=== PATIENT | female | born 1965 ===

== ENCOUNTER 2020-03-08 15:14 | Outpatient (REF) | payer OTHER, SELFPAY ==
[2020-03-08 16:25] LABS: MANUAL DIFF FLAG NO
[2020-03-08 16:31] LABS: Basophils Percent Auto 0.4 % (0-2); Eosinophils Absolute Auto 0.1 X10*3/uL (0.0-0.4); Eosinophils Percent Auto 2.2 % (0-4); Hematocrit 38.1 % (37-47); Imm Gran Abs Auto 0.01 X10*3/uL (0.00-0.03); Imm Gran Pct Auto 0.2 % (0.0-0.4); Lymphocytes Absolute Auto 1.2 X10*3/uL (1.2-4.9); Lymphocytes Percent Auto 27.1 % (20-40); Mean Corpuscular HGB Conc 31.5 g/dl (31.0-35.0); Mean Corpuscular Hemoglobin 30.6 pg (27.0-33.0); Mean Corpuscular Volume 97.2 fL (80-98); Mean Platelet Volume 10.3 fL (9.4-12.3); Monocytes Absolute Auto 0.5 X10*3/uL (0.1-1.2); Neutrophils Absolute Auto 2.6 X10*3/uL (2.0-8.3); Neutrophils Percent Auto 59.1 % (45-73); Platelet Count 235 X10*3/uL (160-400); Red Blood Count 3.92 X10*6/uL (4.20-5.50); White Blood Count 4.5 X10*3/uL (4.8-10.8)
[2020-03-08 17:02] LABS: Alanine Aminotransferase 33 U/L (0-31); Albumin Level 4.1 g/dL (3.5-5.0); Alkaline Phosphatase 85 U/L (39-117); Anion Gap 11 (12-20); Aspartate Amino Transferase 28 U/L (5-31); Bilirubin Total 0.3 mg/dL (0.0-1.0); Blood Urea Nitrogen 14 mg/dL (9-16); C Reactive Protein 0.43 mg/dL (< or = 0.50); Calcium 8.5 mg/dL (8.4-10.2); Carbon Dioxide 27 mmol/L (22-29); Chloride 108 mmol/L (96-108); Estimated Glomerular Filt Rate > 60; Glucose Random 72 mg/dL (60-115); Potassium 4.4 mmol/l (3.3-5.1); Sodium 142 mmol/L (135-145); Total Protein 6.8 g/dL (6.5-8.0)
[2020-03-08 18:00] LABS: Erythrocyte Sedimentation Rate 16 MM/HR (0-20)
== END 2020-03-08 15:15 | disposition home or self-care (01) ==
LOC: HO.LAB 15:14
PROVIDERS: PCP Internal Medicine; Visit Provider Student in an Organized Health Care Education/Training Program
DX: M05.9 Rheumatoid arthritis with rheumatoid factor, unspecified (principal); Z79.899 Other long term (current) drug therapy
CPT/HCPCS: 36415; 80053; 85025; 85652; 86140

== ENCOUNTER → 2020-03-09 11:03 | Outpatient (BNVA) | payer OTHER, SELFPAY | PROVIDERS: PCP Internal Medicine; Visit Provider Student in an Organized Health Care Education/Training Program | DX: Z76.89 Persons encountering health services in other specified circumstances (principal) ==

== ENCOUNTER → 2020-06-08 10:09 | Outpatient (BNVA) | payer OTHER, SELFPAY | PROVIDERS: PCP Internal Medicine; Visit Provider Student in an Organized Health Care Education/Training Program | DX: Z76.89 Persons encountering health services in other specified circumstances (principal) ==

== ENCOUNTER → 2020-06-13 10:58 | Outpatient (BNVA) | payer OTHER, SELFPAY | PROVIDERS: PCP Internal Medicine; Visit Provider Student in an Organized Health Care Education/Training Program ==

== ENCOUNTER 2020-06-19 06:36 | Outpatient (REF) | payer OTHER, SELFPAY | END 2020-06-19 06:37 | disposition home or self-care (01) | LOC: HO.LAB 06:36 | PROVIDERS: PCP Internal Medicine; Visit Provider Internal Medicine | DX: Z20.822 Contact with and (suspected) exposure to COVID-19 (principal) | CPT/HCPCS: 36415; C9803; U0003 ==

== ENCOUNTER → 2020-06-22 09:36 | Outpatient (BNVA) | payer OTHER, SELFPAY | PROVIDERS: PCP Internal Medicine; Visit Provider Student in an Organized Health Care Education/Training Program | DX: Z13.89 Encounter for screening for other disorder (principal) | CPT/HCPCS: 20610 ==

== ENCOUNTER 2020-08-24 11:01 | Outpatient (REF) | payer OTHER, SELFPAY ==
[2020-08-24 12:04] LABS: MANUAL DIFF FLAG NO
[2020-08-24 12:25] LABS: Basophils Percent Auto 0.4 % (0-2); Eosinophils Absolute Auto 0.1 X10*3/uL (0.0-0.4); Eosinophils Percent Auto 1.3 % (0-4); Hematocrit 40.3 % (37-47); Hemoglobin 12.7 g/dl (12.0-16.0); Imm Gran Abs Auto 0.04 X10*3/uL (0.00-0.03); Imm Gran Pct Auto 0.6 % (0.0-0.4); Lymphocytes Percent Auto 43.7 % (20-40); Mean Corpuscular HGB Conc 31.5 g/dl (31.0-35.0); Mean Corpuscular Hemoglobin 29.3 pg (27.0-33.0); Mean Corpuscular Volume 93.1 fL (80-98); Mean Platelet Volume 10.1 fL (9.4-12.3); Monocytes Absolute Auto 0.6 X10*3/uL (0.1-1.2); Monocytes Percent Auto 8.2 % (2-11); Neutrophils Absolute Auto 3.2 X10*3/uL (2.0-8.3); Neutrophils Percent Auto 45.8 % (45-73); Platelet Count 297 X10*3/uL (160-400); Red Blood Count 4.33 X10*6/uL (4.20-5.50); Red Cell Distribution Width 13.8 % (11.0-16.0)
[2020-08-24 12:42] LABS: Alanine Aminotransferase 13 U/L (0-31); Albumin Level 4.1 g/dL (3.5-5.0); Alkaline Phosphatase 61 U/L (39-117); Anion Gap 12 (12-20); Aspartate Amino Transferase 14 U/L (5-31); Bilirubin Total 0.6 mg/dL (0.0-1.0); Blood Urea Nitrogen 18 mg/dL (9-16); C Reactive Protein 0.69 mg/dL (< or = 0.50); Calcium 8.8 mg/dL (8.4-10.2); Carbon Dioxide 28 mmol/L (22-29); Chloride 106 mmol/L (96-108); Estimated Glomerular Filt Rate > 60; Glucose Random 93 mg/dL (60-115); Potassium 4.1 mmol/L (3.3-5.1); Sodium 142 mmol/L (135-145)
[2020-08-24 13:55] LABS: Erythrocyte Sedimentation Rate 20 MM/HR (0-20)
== END 2020-08-24 11:02 | disposition home or self-care (01) ==
LOC: HO.LAB 11:01
PROVIDERS: PCP Internal Medicine; Visit Provider Student in an Organized Health Care Education/Training Program
DX: M05.9 Rheumatoid arthritis with rheumatoid factor, unspecified (principal); Z79.899 Other long term (current) drug therapy
CPT/HCPCS: 36415; 80053; 85025; 85652; 86140

== ENCOUNTER 2020-10-26 09:00 | Outpatient (REF) | payer OTHER, SELFPAY ==
[2020-10-26 10:12] LABS: MANUAL DIFF FLAG NO
[2020-10-26 10:21] LABS: Basophils Percent Auto 0.4 % (0-2); Eosinophils Absolute Auto 0.1 X10*3/uL (0.0-0.4); Hematocrit 40.3 % (37-47); Hemoglobin 13.2 g/dl (12.0-16.0); Imm Gran Abs Auto 0.01 X10*3/uL (0.00-0.03); Imm Gran Pct Auto 0.2 % (0.0-0.4); Lymphocytes Absolute Auto 1.8 X10*3/uL (1.2-4.9); Lymphocytes Percent Auto 39.8 % (20-40); Mean Corpuscular HGB Conc 32.8 g/dl (31.0-35.0); Mean Corpuscular Hemoglobin 29.3 pg (27.0-33.0); Mean Corpuscular Volume 89.4 fL (80-98); Mean Platelet Volume 10.6 fL (9.4-12.3); Monocytes Absolute Auto 0.4 X10*3/uL (0.1-1.2); Monocytes Percent Auto 9.9 % (2-11); Neutrophils Absolute Auto 2.1 X10*3/uL (2.0-8.3); Neutrophils Percent Auto 47.7 % (45-73); Platelet Count 231 X10*3/uL (160-400); Red Blood Count 4.51 X10*6/uL (4.20-5.50); Red Cell Distribution Width 13.6 % (11.0-16.0); White Blood Count 4.5 X10*3/uL (4.8-10.8)
[2020-10-26 10:48] LABS: Alanine Aminotransferase 19 U/L (0-31); Albumin Level 4.3 g/dL (3.5-5.0); Alkaline Phosphatase 77 U/L (39-117); Anion Gap 14 (12-20); Aspartate Amino Transferase 25 U/L (5-31); Bilirubin Total 0.6 mg/dL (0.0-1.0); Blood Urea Nitrogen 16 mg/dL (9-16); C Reactive Protein 0.04 mg/dL (< or = 0.50); Calcium 9.5 mg/dL (8.4-10.2); Carbon Dioxide 26 mmol/L (22-29); Chloride 107 mmol/L (96-108); Cholesterol 341 mg/dL; Estimated Glomerular Filt Rate > 60; Glucose Random 90 mg/dL (60-115); HDL Cholesterol 124 mg/dL; LDL Cholesterol Calculated 200 mg/dl; Potassium 4.8 mmol/L (3.3-5.1); Sodium 142 mmol/L (135-145); Total Protein 7.1 g/dL (6.5-8.0); Triglycerides 85 mg/dL
[2020-10-26 11:17] LABS: Erythrocyte Sedimentation Rate 14 MM/HR (0-20)
[2020-10-26 11:47] LABS: Reflex LDLD? No
== END 2020-10-26 09:01 | disposition home or self-care (01) ==
LOC: HO.LAB 09:00
PROVIDERS: PCP Internal Medicine; Visit Provider Student in an Organized Health Care Education/Training Program
DX: M05.9 Rheumatoid arthritis with rheumatoid factor, unspecified (principal); Z79.899 Other long term (current) drug therapy
CPT/HCPCS: 36415; 80053; 80061; 85025; 85652; 86140

== ENCOUNTER → 2021-02-07 13:37 | Outpatient (BNVA) | payer OTHER, SELFPAY | PROVIDERS: Visit Provider Nurse Practitioner Family ==

== ENCOUNTER 2021-04-18 08:40 | Outpatient (REF) | payer OTHER, SELFPAY ==
[2021-04-18 08:54] LABS: MANUAL DIFF FLAG NO
[2021-04-18 09:41] LABS: Basophils Percent Auto 0.3 % (0-2); Eosinophils Absolute Auto 0.1 X10*3/uL (0.0-0.4); Eosinophils Percent Auto 1.3 % (0-4); Hematocrit 36.6 % (37.0-47.0); Hemoglobin 12.2 g/dl (12.0-16.0); Imm Gran Abs Auto 0.01 X10*3/uL (0.00-0.03); Imm Gran Pct Auto 0.3 % (0.0-0.4); Lymphocytes Absolute Auto 1.2 X10*3/uL (1.2-4.9); Mean Corpuscular HGB Conc 33.3 g/dl (31.0-35.0); Mean Corpuscular Hemoglobin 30.7 pg (27.0-33.0); Mean Platelet Volume 10.5 fL (9.4-12.3); Monocytes Absolute Auto 0.3 X10*3/uL (0.1-1.2); Monocytes Percent Auto 7.5 % (2-11); Neutrophils Absolute Auto 2.2 x10*3/uL (2.0-8.3); Neutrophils Percent Auto 59.6 % (45-73); Platelet Count 199 X10*3/uL (160-400); Red Blood Count 3.98 X10*6/uL (4.20-5.50); Red Cell Distribution Width 13.1 % (11.0-16.0); White Blood Count 3.7 X10*3/uL (4.8-10.8)
[2021-04-18 10:09] LABS: Alanine Aminotransferase 20 U/L (0-31); Albumin Level 4.3 g/dL (3.5-5.0); Alkaline Phosphatase 79 U/L (39-117); Anion Gap 12 (12-20); Aspartate Amino Transferase 21 U/L (5-31); Bilirubin Total 0.5 mg/dL (0.0-1.0); Blood Urea Nitrogen 18 mg/dL (9-16); Calcium 9.3 mg/dL (8.4-10.2); Carbon Dioxide 26 mmol/L (22-29); Chloride 108 mmol/L (96-108); Cholesterol 315 mg/dL; Estimated Glomerular Filt Rate > 60; Glucose Fasting 89 mg/dL (60-99); HDL Cholesterol 91 mg/dL; LDL Cholesterol Calculated 209 mg/dl; Potassium 4.5 mmol/L (3.3-5.1); Sodium 141 mmol/L (135-145); Total Protein 7.1 g/dL (6.5-8.0); Triglycerides 76 mg/dL
[2021-04-18 11:06] LABS: Erythrocyte Sedimentation Rate 16 MM/HR (0-20)
[2021-04-18 15:05] LABS: C Reactive Protein 0.04 mg/dL (< or = 0.50)
[2021-04-22 12:11] LABS: Vitamin D 25-OH, D2 10 ng/mL; Vitamin D 25-OH, D3 14 ng/mL; Vitamin D 25-OH, Total 24 ng/mL (30-100)
== END 2021-04-18 08:41 | disposition home or self-care (01) ==
LOC: HO.LAB 08:40
PROVIDERS: PCP Internal Medicine; Referring Provider Nurse Practitioner Family; Visit Provider Internal Medicine
DX: E55.9 Vitamin D deficiency, unspecified (principal); E78.5 Hyperlipidemia, unspecified; M05.9 Rheumatoid arthritis with rheumatoid factor, unspecified; K21.9 Gastro-esophageal reflux disease without esophagitis
CPT/HCPCS: 36415; 80053; 80061; 82306; 85025; 85652; 86140

== ENCOUNTER 2021-04-27 14:19 | Outpatient (REF) | payer OTHER, SELFPAY ==
--- NOTE | ~2021-04-27 | MM_ITS ---
EXAMINATION: MM SCREENING DIGITAL BREAST TOMOSYNTHESIS, BILATERAL CLINICAL INFORMATION: Screening. Asymptomatic. The lifetime risk of breast cancer based on the Tyrer-Cuzick Model is 6%. COMPARISON: Mammography: 12/26/2017, 10/16/2015 TECHNIQUE: Digital breast tomosynthesis is performed in both the craniocaudal and mediolateral oblique views along with computer-aided detection (CAD). Synthesized 2D images are generated from the tomosynthesis. FINDINGS: There are scattered areas of fibroglandular density (ACR BI-RADS breast composition Category b). There are no significant masses, abnormal calcifications, or other abnormalities. Parenchymal pattern is similar to prior studies. Parenchymal asymmetry posterior upper outer right breast and intramammary node posterior 3:00 left breast are stable. MM/MM tomosynthesis screening BI IMPRESSION: No mammographic evidence of malignancy. ASSESSMENT: BI-RADS 2: Benign RECOMMENDATION: Routine annual mammography screening. This patient's information was entered into a reminder system with a target due date for their next mammogram.
== END 2021-04-27 14:20 | disposition home or self-care (01) ==
LOC: HO.MAMMO 14:19
PROVIDERS: Visit Provider Internal Medicine
DX: Z12.31 Encounter for screening mammogram for malignant neoplasm of breast (principal)
CPT/HCPCS: 77063; 77067

== ENCOUNTER 2021-05-03 13:03 | Outpatient (REF) | payer OTHER, SELFPAY ==
[2021-05-07 22:07] LABS: HPV mRNA E6/E7 rflx Not Detected (Not Detected)
== END 2021-05-03 13:04 | disposition home or self-care (01) ==
LOC: HO.LAB 13:03
PROVIDERS: PCP Internal Medicine; Visit Provider Obstetrics & Gynecology
DX: Z01.419 Encounter for gynecological examination (general) (routine) without abnormal findings (principal)
CPT/HCPCS: 87624; 88142

== ENCOUNTER → 2021-06-04 10:24 | Outpatient (BNVA) | payer OTHER, SELFPAY | PROVIDERS: PCP Internal Medicine; Visit Provider Nurse Practitioner Family ==

== ENCOUNTER 2021-08-31 07:46 | Outpatient (REF) | payer OTHER, SELFPAY ==
[2021-08-31 08:07] LABS: MANUAL DIFF FLAG NO
[2021-08-31 08:15] LABS: Basophils Percent Auto 0.6 % (0-2); Eosinophils Absolute Auto 0.1 X10*3/uL (0.0-0.4); Eosinophils Percent Auto 3.2 % (0-4); Hematocrit 34.2 % (37.0-47.0); Hemoglobin 11.1 g/dl (12.0-16.0); Lymphocytes Absolute Auto 1.2 X10*3/uL (1.2-4.9); Lymphocytes Percent Auto 39.9 % (20-40); Mean Corpuscular HGB Conc 32.5 g/dl (31.0-35.0); Mean Corpuscular Hemoglobin 30.1 pg (27.0-33.0); Mean Corpuscular Volume 92.7 fL (80.0-98.0); Mean Platelet Volume 9.6 fL (9.4-12.3); Monocytes Absolute Auto 0.2 X10*3/uL (0.1-1.2); Monocytes Percent Auto 7.7 % (2-11); Neutrophils Absolute Auto 1.5 x10*3/uL (2.0-8.3); Neutrophils Percent Auto 48.6 % (45-73); Platelet Count 227 X10*3/uL (160-400); Red Blood Count 3.69 X10*6/uL (4.20-5.50); Red Cell Distribution Width 13.3 % (11.0-16.0); White Blood Count 3.1 X10*3/uL (4.8-10.8)
[2021-08-31 08:40] LABS: Alanine Aminotransferase 15 U/L (0-31); Albumin Level 4.1 g/dL (3.5-5.0); Alkaline Phosphatase 78 U/L (39-117); Anion Gap 10 (12-20); Aspartate Amino Transferase 19 U/L (5-31); Bilirubin Total 0.6 mg/dL (0.0-1.0); Blood Urea Nitrogen 12 mg/dL (9-16); C Reactive Protein 0.06 mg/dL (< or = 0.50); Calcium 9.2 mg/dL (8.4-10.2); Carbon Dioxide 28 mmol/L (22-29); Chloride 108 mmol/L (96-108); Cholesterol 286 mg/dL; Estimated Glomerular Filt Rate > 60; Glucose Random 93 mg/dL (60-115); HDL Cholesterol 92 mg/dL; LDL Cholesterol Calculated 179 mg/dl; Potassium 3.9 mmol/L (3.3-5.1); Sodium 142 mmol/L (135-145); Total Protein 6.8 g/dL (6.5-8.0); Triglycerides 76 mg/dL
[2021-08-31 08:54] LABS: Erythrocyte Sedimentation Rate 23 MM/HR (0-20)
[2021-08-31 09:12] LABS: Reflex LDLD? No
== END 2021-08-31 07:47 | disposition home or self-care (01) ==
LOC: HO.LAB 07:46
PROVIDERS: Absent Provider Internal Medicine; PCP Internal Medicine; Visit Provider Nurse Practitioner Family
DX: M05.9 Rheumatoid arthritis with rheumatoid factor, unspecified (principal)
CPT/HCPCS: 36415; 80053; 80061; 85025; 85652; 86140

== ENCOUNTER → 2021-09-03 11:31 | Outpatient (BNVA) | payer OTHER, SELFPAY | PROVIDERS: PCP Internal Medicine; Visit Provider Nurse Practitioner Family | DX: Z13.89 Encounter for screening for other disorder (principal) ==

== ENCOUNTER 2021-11-28 10:25 | Outpatient (REF) | payer OTHER, SELFPAY ==
[2021-11-28 10:40] LABS: MANUAL DIFF FLAG NO
[2021-11-28 11:57] LABS: Basophils Percent Auto 0.4 % (0-2); Eosinophils Absolute Auto 0.1 X10*3/uL (0.0-0.4); Hematocrit 34.1 % (37.0-47.0); Hemoglobin 10.9 g/dl (12.0-16.0); Imm Gran Abs Auto 0.01 X10*3/uL (0.00-0.03); Imm Gran Pct Auto 0.2 % (0.0-0.4); Lymphocytes Percent Auto 22.2 % (20-40); Mean Corpuscular Hemoglobin 29.9 pg (27.0-33.0); Mean Corpuscular Volume 93.4 fL (80.0-98.0); Mean Platelet Volume 10.4 fL (9.4-12.3); Monocytes Absolute Auto 0.4 X10*3/uL (0.1-1.2); Monocytes Percent Auto 9.7 % (2-11); Neutrophils Percent Auto 65.5 % (45-73); Platelet Count 221 X10*3/uL (160-400); Red Blood Count 3.65 X10*6/uL (4.20-5.50); Red Cell Distribution Width 14.1 % (11.0-16.0); White Blood Count 4.5 X10*3/uL (4.8-10.8)
[2021-11-28 12:38] LABS: Vitamin D 25-OH Total 10.7 ng/mL (>30)
[2021-11-28 12:55] LABS: Cholesterol 293 mg/dL; HDL Cholesterol 108 mg/dL; LDL Cholesterol Calculated 170 mg/dl; Triglycerides 76 mg/dL
[2021-11-28 13:48] LABS: Reflex LDLD? No
== END 2021-11-28 10:26 | disposition home or self-care (01) ==
LOC: HO.LAB 10:25
PROVIDERS: PCP Internal Medicine; Visit Provider Nurse Practitioner Family
DX: M05.9 Rheumatoid arthritis with rheumatoid factor, unspecified (principal)
CPT/HCPCS: 36415; 80061; 82306; 85025

== ENCOUNTER 2021-12-10 16:42 | Outpatient (REF) | payer OTHER, SELFPAY ==
--- NOTE | ~2021-12-10 | XR_ITS ---
Examination: XR foot LT min 3V, XR wrist LT min 3V Indication: Rheumatoid arthritis. Contusion of left hand, initial encounter Comparison: No pertinent prior studies are currently available for comparison. Technique: 4 views of the left wrist and 3 views of the left foot obtained Findings: Left wrist: Bones are normal anatomic alignment. No acute fracture or dislocation. No bony destructive lesions or periosteal reaction. Surrounding soft tissues unremarkable. Mild degenerative changes at the first carpal metacarpal joint. Left foot: Bones are normal anatomic alignment with no acute bony destructive lesions or erosions. No periosteal reaction. No acute fracture or dislocation. Surrounding soft tissues unremarkable. Small calcaneal heel spur at the attachment point of the plantar aponeurosis. XR/XR wrist LT min 3V Impression: No acute bony abnormality. Mild degenerative changes
--- NOTE | ~2021-12-10 | XR_ITS ---
Examination: XR foot LT min 3V, XR wrist LT min 3V Indication: Rheumatoid arthritis. Contusion of left hand, initial encounter Comparison: No pertinent prior studies are currently available for comparison. Technique: 4 views of the left wrist and 3 views of the left foot obtained Findings: Left wrist: Bones are normal anatomic alignment. No acute fracture or dislocation. No bony destructive lesions or periosteal reaction. Surrounding soft tissues unremarkable. Mild degenerative changes at the first carpal metacarpal joint. Left foot: Bones are normal anatomic alignment with no acute bony destructive lesions or erosions. No periosteal reaction. No acute fracture or dislocation. Surrounding soft tissues unremarkable. Small calcaneal heel spur at the attachment point of the plantar aponeurosis. XR/XR foot LT min 3V Impression: No acute bony abnormality. Mild degenerative changes
== END 2021-12-10 16:43 | disposition home or self-care (01) ==
LOC: HO.HMGCX 16:42
PROVIDERS: Visit Provider Internal Medicine
DX: S90.32XA Contusion of left foot, initial encounter (principal); S60.222A Contusion of left hand, initial encounter
CPT/HCPCS: 73110; 73630

== ENCOUNTER 2022-02-07 09:44 | Outpatient (REF) | payer OTHER, SELFPAY ==
[2022-02-07 10:01] LABS: MANUAL DIFF FLAG NO
[2022-02-07 10:21] LABS: Basophils Percent Auto 0.3 % (0-2); Eosinophils Absolute Auto 0.1 X10*3/uL (0.0-0.4); Eosinophils Percent Auto 2.3 % (0-4); Hematocrit 36.4 % (37.0-47.0); Hemoglobin 11.9 g/dl (12.0-16.0); Imm Gran Abs Auto 0.01 X10*3/uL (0.00-0.03); Imm Gran Pct Auto 0.3 % (0.0-0.4); Lymphocytes Absolute Auto 1.3 X10*3/uL (1.2-4.9); Lymphocytes Percent Auto 38.4 % (20-40); Mean Corpuscular HGB Conc 32.7 g/dl (31.0-35.0); Mean Corpuscular Hemoglobin 29.8 pg (27.0-33.0); Mean Platelet Volume 10.1 fL (9.4-12.3); Monocytes Absolute Auto 0.3 X10*3/uL (0.1-1.2); Monocytes Percent Auto 9.8 % (2-11); Neutrophils Absolute Auto 1.7 x10*3/uL (2.0-8.3); Neutrophils Percent Auto 48.9 % (45-73); Platelet Count 222 X10*3/uL (160-400); Red Cell Distribution Width 13.3 % (11.0-16.0); White Blood Count 3.5 X10*3/uL (4.8-10.8)
[2022-02-07 10:50] LABS: Alanine Aminotransferase 15 U/L (0-31); Albumin Level 4.3 g/dL (3.5-5.0); Alkaline Phosphatase 88 U/L (39-117); Anion Gap 15 (12-20); Aspartate Amino Transferase 21 U/L (5-31); Bilirubin Total 0.5 mg/dL (0.0-1.0); Blood Urea Nitrogen 21 mg/dL (9-16); C Reactive Protein 0.18 mg/dL (< or = 0.50); Calcium 9.2 mg/dL (8.4-10.2); Carbon Dioxide 23 mmol/L (22-29); Chloride 107 mmol/L (96-108); Estimated Glomerular Filt Rate > 60; Glucose Random 92 mg/dL (60-115); Iron 85 mcg/dL (30-160); Percent Iron Saturation 24 % (15-50); Potassium 4.5 mmol/L (3.3-5.1); Sodium 140 mmol/L (135-145); Total Iron Binding Capacity 355 mcg/dL (228-428); Total Protein 7.4 g/dL (6.5-8.0); Unsaturated Iron Binding 270 ug/dL
[2022-02-07 11:19] LABS: Ferritin 74 ng/mL (10-250)
[2022-02-07 11:29] LABS: Erythrocyte Sedimentation Rate 25 MM/HR (0-20)
== END 2022-02-07 09:45 | disposition home or self-care (01) ==
LOC: HO.LAB 09:44
PROVIDERS: PCP Internal Medicine; Visit Provider Nurse Practitioner Family
DX: M05.9 Rheumatoid arthritis with rheumatoid factor, unspecified (principal); E55.9 Vitamin D deficiency, unspecified
CPT/HCPCS: 36415; 80053; 82306; 82728; 83540; 85025; 85652; 86140

== ENCOUNTER 2022-02-27 11:19 | Outpatient (REF) | payer OTHER, SELFPAY ==
[2022-02-27 11:32] LABS: MANUAL DIFF FLAG NO
[2022-02-27 12:08] LABS: Basophils Percent Auto 0.6 % (0-2); Eosinophils Absolute Auto 0.1 X10*3/uL (0.0-0.4); Eosinophils Percent Auto 2.4 % (0-4); Hemoglobin 11.7 g/dl (12.0-16.0); Lymphocytes Absolute Auto 0.8 X10*3/uL (1.2-4.9); Lymphocytes Percent Auto 24.7 % (20-40); Mean Corpuscular HGB Conc 32.5 g/dl (31.0-35.0); Mean Corpuscular Hemoglobin 29.4 pg (27.0-33.0); Mean Corpuscular Volume 90.5 fL (80.0-98.0); Mean Platelet Volume 9.7 fL (9.4-12.3); Monocytes Absolute Auto 0.4 X10*3/uL (0.1-1.2); Monocytes Percent Auto 12.5 % (2-11); Neutrophils Percent Auto 59.8 % (45-73); Platelet Count 203 X10*3/uL (160-400); Red Blood Count 3.98 X10*6/uL (4.20-5.50); Red Cell Distribution Width 13.4 % (11.0-16.0); White Blood Count 3.4 X10*3/uL (4.8-10.8)
[2022-02-27 12:34] LABS: Alanine Aminotransferase 11 U/L (0-31); Albumin Level 4.3 g/dL (3.5-5.0); Alkaline Phosphatase 74 U/L (39-117); Anion Gap 13 (12-20); Aspartate Amino Transferase 18 U/L (5-31); Bilirubin Total 0.6 mg/dL (0.0-1.0); Blood Urea Nitrogen 15 mg/dL (9-16); C Reactive Protein 0.49 mg/dL (< or = 0.50); Calcium 9.4 mg/dL (8.4-10.2); Carbon Dioxide 25 mmol/L (22-29); Chloride 109 mmol/L (96-108); Estimated Glomerular Filt Rate > 60; Glucose Random 96 mg/dL (60-115); Potassium 4.4 mmol/L (3.3-5.1); Sodium 143 mmol/L (135-145); Total Protein 7.1 g/dL (6.5-8.0)
[2022-02-27 12:53] LABS: Erythrocyte Sedimentation Rate 34 MM/HR (0-20)
== END 2022-02-27 11:20 | disposition home or self-care (01) ==
LOC: HO.LAB 11:19
PROVIDERS: PCP Internal Medicine; Visit Provider Nurse Practitioner Family
DX: M05.9 Rheumatoid arthritis with rheumatoid factor, unspecified (principal); Z79.899 Other long term (current) drug therapy
CPT/HCPCS: 36415; 80053; 85025; 85652; 86140

== ENCOUNTER 2022-04-01 11:05 | Outpatient (REF) | payer OTHER, SELFPAY ==
[2022-04-01 11:17] LABS: MANUAL DIFF FLAG NO
[2022-04-01 11:35] LABS: Basophils Percent Auto 0.5 % (0-2); Eosinophils Absolute Auto 0.1 X10*3/uL (0.0-0.4); Eosinophils Percent Auto 1.8 % (0-4); Hematocrit 38.9 % (37.0-47.0); Hemoglobin 12.6 g/dl (12.0-16.0); Imm Gran Abs Auto 0.01 X10*3/uL (0.00-0.03); Imm Gran Pct Auto 0.2 % (0.0-0.4); Lymphocytes Absolute Auto 1.7 X10*3/uL (1.2-4.9); Lymphocytes Percent Auto 39.2 % (20-40); Mean Corpuscular HGB Conc 32.4 g/dl (31.0-35.0); Mean Corpuscular Hemoglobin 30.1 pg (27.0-33.0); Mean Corpuscular Volume 92.8 fL (80.0-98.0); Mean Platelet Volume 10.4 fL (9.4-12.3); Monocytes Absolute Auto 0.3 X10*3/uL (0.1-1.2); Monocytes Percent Auto 6.9 % (2-11); Neutrophils Absolute Auto 2.2 x10*3/uL (2.0-8.3); Neutrophils Percent Auto 51.4 % (45-73); Platelet Count 186 X10*3/uL (160-400); Red Blood Count 4.19 X10*6/uL (4.20-5.50); Red Cell Distribution Width 13.7 % (11.0-16.0); White Blood Count 4.4 X10*3/uL (4.8-10.8)
[2022-04-01 12:11] LABS: Alanine Aminotransferase 16 U/L (0-31); Albumin Level 4.3 g/dL (3.5-5.0); Alkaline Phosphatase 79 U/L (39-117); Anion Gap 14 (12-20); Aspartate Amino Transferase 21 U/L (5-31); Bilirubin Total 0.6 mg/dL (0.0-1.0); Blood Urea Nitrogen 15 mg/dL (9-16); C Reactive Protein 0.05 mg/dL (< or = 0.50); Calcium 9.3 mg/dL (8.4-10.2); Carbon Dioxide 25 mmol/L (22-29); Chloride 108 mmol/L (96-108); Estimated Glomerular Filt Rate > 60; Glucose Random 71 mg/dL (60-115); Iron 86 mcg/dL (30-160); Percent Iron Saturation 25 % (15-50); Potassium 4.5 mmol/L (3.3-5.1); Sodium 142 mmol/L (135-145); Total Iron Binding Capacity 340 mcg/dL (228-428); Total Protein 7.4 g/dL (6.5-8.0); Unsaturated Iron Binding 254 ug/dL
[2022-04-01 12:17] LABS: Erythrocyte Sedimentation Rate 21 MM/HR (0-20)
[2022-04-01 12:34] LABS: Ferritin 67 ng/mL (10-250); Vitamin D 25-OH Total 14.2 ng/mL (>30)
[2022-04-01 12:57] LABS: Folate 11.3 ng/mL (> or = 4.0)
== END 2022-04-01 11:06 | disposition home or self-care (01) ==
LOC: HO.LAB 11:05
PROVIDERS: PCP Internal Medicine; Visit Provider Nurse Practitioner Family
DX: M05.9 Rheumatoid arthritis with rheumatoid factor, unspecified (principal); D64.9 Anemia, unspecified; E55.9 Vitamin D deficiency, unspecified
CPT/HCPCS: 36415; 80053; 82306; 82728; 82746; 83540; 85025; 85652; 86140

== ENCOUNTER 2022-05-14 09:56 | Outpatient (REF) | payer OTHER, SELFPAY | END 2022-05-14 09:57 | disposition home or self-care (01) | LOC: HO.HMGCX 09:56 | PROVIDERS: PCP Internal Medicine; Visit Provider Nurse Practitioner Family | DX: R10.9 Unspecified abdominal pain (principal) | CPT/HCPCS: 76700 ==

== ENCOUNTER 2022-07-01 15:57 | Outpatient (REF) | payer OTHER, SELFPAY ==
[2022-07-01 16:09] LABS: MANUAL DIFF FLAG NO
[2022-07-01 16:25] LABS: Basophils Percent Auto 0.5 % (0-2); Eosinophils Absolute Auto 0.1 X10*3/uL (0.0-0.4); Eosinophils Percent Auto 1.4 % (0-4); Hematocrit 35.9 % (37.0-47.0); Hemoglobin 11.6 g/dl (12.0-16.0); Imm Gran Abs Auto 0.01 X10*3/uL (0.00-0.03); Imm Gran Pct Auto 0.2 % (0.0-0.4); Lymphocytes Absolute Auto 1.5 X10*3/uL (1.2-4.9); Lymphocytes Percent Auto 35.1 % (20-40); Mean Corpuscular HGB Conc 32.3 g/dl (31.0-35.0); Mean Corpuscular Hemoglobin 29.7 pg (27.0-33.0); Mean Corpuscular Volume 92.1 fL (80.0-98.0); Monocytes Absolute Auto 0.5 X10*3/uL (0.1-1.2); Monocytes Percent Auto 11.6 % (2-11); Neutrophils Absolute Auto 2.2 x10*3/uL (2.0-8.3); Neutrophils Percent Auto 51.2 % (45-73); Platelet Count 205 X10*3/uL (160-400); Red Cell Distribution Width 14.4 % (11.0-16.0); White Blood Count 4.2 X10*3/uL (4.8-10.8)
[2022-07-01 16:48] LABS: Alanine Aminotransferase 15 U/L (0-31); Aspartate Amino Transferase 19 U/L (5-31); C Reactive Protein 0.12 mg/dL (< or = 0.50); Estimated Glomerular Filt Rate > 60
[2022-07-01 17:07] LABS: Erythrocyte Sedimentation Rate 19 MM/HR (0-20)
== END 2022-07-01 15:58 | disposition home or self-care (01) ==
LOC: HO.LAB 15:57
PROVIDERS: PCP Internal Medicine; Visit Provider Nurse Practitioner Family
DX: M05.9 Rheumatoid arthritis with rheumatoid factor, unspecified (principal); Z79.899 Other long term (current) drug therapy
CPT/HCPCS: 36415; 82565; 84450; 84460; 85025; 85652; 86140

== ENCOUNTER → 2022-07-02 11:25 | Outpatient (BNVA) | payer OTHER, SELFPAY | PROVIDERS: PCP Internal Medicine; Visit Provider Nurse Practitioner Family | DX: Z13.89 Encounter for screening for other disorder (principal) ==

== ENCOUNTER → 2022-10-31 11:23 | Outpatient (BNVA) | payer OTHER, SELFPAY | PROVIDERS: PCP Internal Medicine; Visit Provider Internal Medicine Rheumatology ==

== ENCOUNTER 2022-12-25 11:42 | Outpatient (REF) | payer OTHER, SELFPAY ==
[2022-12-25 11:53] LABS: MANUAL DIFF FLAG NO
[2022-12-25 13:09] LABS: Basophils Percent Auto 0.4 % (0-2); Eosinophils Percent Auto 0.9 % (0-4); Hematocrit 36.5 % (37.0-47.0); Hemoglobin 11.6 g/dl (12.0-16.0); Imm Gran Abs Auto 0.01 X10*3/uL (0.00-0.03); Imm Gran Pct Auto 0.2 % (0.0-0.4); Lymphocytes Absolute Auto 1.6 X10*3/uL (1.2-4.9); Mean Corpuscular HGB Conc 31.8 g/dl (31.0-35.0); Mean Corpuscular Hemoglobin 29.7 pg (27.0-33.0); Mean Corpuscular Volume 93.6 fL (80.0-98.0); Mean Platelet Volume 10.3 fL (9.4-12.3); Monocytes Absolute Auto 0.4 X10*3/uL (0.1-1.2); Monocytes Percent Auto 8.1 % (2-11); Neutrophils Absolute Auto 2.6 x10*3/uL (2.0-8.3); Neutrophils Percent Auto 56.4 % (45-73); Platelet Count 267 X10*3/uL (160-400); White Blood Count 4.7 X10*3/uL (4.8-10.8)
[2022-12-25 13:53] LABS: Erythrocyte Sedimentation Rate 23 MM/HR (0-20)
[2022-12-25 14:28] LABS: Alanine Aminotransferase 13 U/L (0-31); Aspartate Amino Transferase 18 U/L (5-31); C Reactive Protein 0.14 mg/dL (< or = 0.50); Estimated Glomerular Filt Rate > 60
== END 2022-12-25 11:43 | disposition home or self-care (01) ==
LOC: HO.LAB 11:42
PROVIDERS: PCP Internal Medicine; Visit Provider Internal Medicine Rheumatology
DX: M05.9 Rheumatoid arthritis with rheumatoid factor, unspecified (principal); Z79.899 Other long term (current) drug therapy
CPT/HCPCS: 36415; 82565; 84450; 84460; 85025; 85652; 86140

== ENCOUNTER → 2023-02-27 10:59 | Outpatient (BNVA) | payer OTHER, SELFPAY | PROVIDERS: PCP Internal Medicine; Visit Provider Internal Medicine Rheumatology ==

== ENCOUNTER 2023-03-04 08:40 | Outpatient (AMB) | payer OTHER, SELFPAY ==
--- NOTE | 2023-03-04 08:43 | MHC.OFFVIS ---
Intake Vital Signs 03/04/23 08:49 Height 5 ft 1 in Weight 185 lb 3.013 oz BMI 35.0 BP 120/90 H Blood Pressure Location Lt brachial Position Sitting Pulse 92 Pulse Source Pulse Oximeter Temp 97.4 F Temp Source Skin Pulse Oximetry (%) 95 Oxygen Delivery Method Room Air Intake Visit Reasons: RA Intake Note: Patient presents today to follow up on RA. c/o [place] hand finger swelling, left elbow pain, right knee pain, right achilles tendon pain. 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 She remains on Rinvoq 15 mg daily with occasional 600 mg ibuprofen. She probably takes the ibuprofen once or twice a week she says. 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 Areas of pain include the wrists, right PIP and left MCPs. She does not see him to have any knee pain. She does have some pain in the left Achilles. [facility] Medical History Class 1 obesity with body mass index (BMI) of 34.0 to 34.9 in adult GERD (gastroesophageal reflux disease) Hypercholesterolemia Mixed hyperlipidemia Peptic ulcer disease Vitamin D deficiency Surgical History History of gastric surgery History of tubal ligation Family History Mother Diabetes HTN (hypertension) CVD (cardiovascular disease) Father High cholesterol Stroke Social History Household Members: Spouse Housing: House Alcohol intake: never Patient Tobacco Use Status: Never used Tobacco e-Cigarette/Vaping Use: Never Used Second Hand Smoke Exposure: No service: No Current occupational status: employed Current occupational exposures/hazards: No Cognitive needs: No Hearing needs: No Vision needs: Yes Female Reproductive History Menstrual Age of Menarche: 9 Review of Systems Const Details: Negative for appetite change, weight change, fever, chills, malaise and fatigue Eyes Details: Negative for vision change, dry eyes,headaches and dizziness Card Details: Negative chest pain, edema and syncope Resp Details: Negative for SOB, cough and wheezing GI Details: Negative indigestion/heartburn, nausea, abdominal pain, bowel changes, diarrhea, constipation and bloody stool. [place]/Lymph Details: Negative for excessive bruising or bleeding. Physical Exam Vital Signs: Last Vital Signs Temp 97.4 F 03/04/23 08:49 Pulse 92 03/04/23 08:49 BP 120/90 H 03/04/23 08:49 Pulse Ox 95 03/04/23 08:49 Oxygen Delivery Method Room Air 03/04/23 08:49 BMI result Body Mass Index 35.0 APPEARANCE: Patient in no acute distress EYES no redness, pupils equal and reactive to light, eyelids normal JOINT EXAM:?? Cervical Spine:? Full range of motion without pain; no tenderness. Thoracic Spine: No scoliosis.? No tenderness on palpation. Lumbar Spine:? Alignment normal.? Full range of motion without pain, no tenderness. Hands: LEFT:? Normal pain-free range of motion with slight tenderness at the 2nd through 4th MCP with minimal swelling.. There is some mild bony enlargement at the 2nd through 4th PIP joints. She has some slightly tender bony enlargement at the 2nd PIP. She has otherwise no other soft tissue swelling no tenderness. No thenar atrophy, flexor tendon triggering or sensory loss.. ? RIGHT: Mild pain with range of motion at the 5th finger. There is some slight swelling and tenderness at the 3rd MCP and there is [id number] tenderness along the 5th flexor tendon. There is slight tenderness of the 2nd through 4th flexor tendons. She has some nontender bony enlargement at the thumb IP and the 2nd 3rd PIP joints. No sensory loss or thenar atrophy. Wrists:? LEFT:? Mild pain with flexion and extension at 60 degrees with some ulnar aspect tenderness with questionable swelling. No increased warmth erythema. ? RIGHT: Mild pain with flexion extension at 60 degrees. There is some mild ulnar tenderness with no swelling. No redness or warmth. Elbows: Normal pain-free range of motion without tenderness, swelling, increased warmth or erythema. Shoulders: Normal pain-free range of motion without tenderness, swelling, increased warmth or erythema. Hips:? Full range of motion without pain. Hip bursa:? No tenderness. Knees:?? Normal pain-free range of motion with slight patellofemoral crepitus but no effusion, tenderness, swelling, increased warmth or erythema.? Ankles: Left: There is mild with AP motion at the ankle. There is some mild tenderness along the Achilles tendon without redness, bruising or swelling. Right: Normal pain-free range of motion without tenderness, swelling, increased warmth or erythema. Feet: Left: Pain-free range of motion with some slight tenderness at the 3rd and 4th MTP joints without swelling. Right: Normal pain-free range of motion without tenderness, swelling, increased warmth or erythema. ? Office Procedures Joint Injection/Drain Joint Injection/Drain Primary Site: right trigger finger Injected: 20 mg of, Kenalog, with 0.5 mL of and 1% plain lidocaine Coding Details: The palm of the right hand was prepped with ChloraPrep and alcohol. Under topical ethyl chloride spray the right 5th flexor tendon sheath was injected with 20 mg of triamcinolone and 0.2 cc of 1% lidocaine. The patient tolerated the procedure without any acute complications. 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 Most problematic currently seems to be the right 5th finger where she has some tenderness along the flexor tendon. Local corticosteroid injection for that is recommended. We reviewed potential side effects of corticosteroid injections. She has had them before. The palm of the right hand was prepped with ChloraPrep and alcohol. Under topical ethyl chloride spray the right 5th flexor tendon sheath was injected with 20 mg of triamcinolone and 0.2 cc of 1% lidocaine. The patient tolerated the procedure without any acute complications. The lab work looked good with normal CRP and minimally elevated sed rate. We will continue with the Rinvoq as above. The patient is scheduled to return in 3 months with lab work before that procedure. She was given a note to be out of work today and tomorrow because of the injection. 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 Erythrocyte Sedimentation Rate Today M05.9 - Rheumatoid arthritis with rheumatoid factor, unspecified C Reactive Protein Today M05.9 - Rheumatoid arthritis with rheumatoid factor, unspecified Aspartate Amino Transferase Today M05.9 - Rheumatoid arthritis with rheumatoid factor, unspecified, Z79.899 - Other shelter (current) drug therapy Creatinine Today M05.9 - Rheumatoid arthritis with rheumatoid factor, unspecified, Z79.899 - Other shelter (current) drug therapy AMB Joint Injection/Aspiration Today M65.9 - Synovitis and tenosynovitis, unspecified Coding Level of Care Code Est Pt Level 3 (10200) Diagnoses Long-term use of immunosuppressant medication Z79.60 Flexor tenosynovitis of finger M65.9 Seropositive rheumatoid arthritis M05.9
[2023-03-04 08:49] VITALS: BP 120/90; PULSE 92; TEMP 36.3; O2SAT 95; BMI 35.0
== END 2023-03-04 09:24 | disposition home or self-care (01) ==
PROVIDERS: PCP Internal Medicine; Visit Provider Internal Medicine Rheumatology
DX: M05.79 Rheumatoid arthritis with rheumatoid factor of multiple sites without organ or systems involvement (principal); Z79.60 Long term (current) use of unspecified immunomodulators and immunosuppressants; M65.841 Other synovitis and tenosynovitis, right hand
CPT/HCPCS: 20550; 99213

== ENCOUNTER → 2023-03-04 08:40 | Outpatient (BNVA) | payer OTHER, SELFPAY | PROVIDERS: PCP Internal Medicine; Visit Provider Internal Medicine Rheumatology | DX: M65.9 Synovitis and tenosynovitis, unspecified (principal); M05.9 Rheumatoid arthritis with rheumatoid factor, unspecified; Z79.60 Long term (current) use of unspecified immunomodulators and immunosuppressants | CPT/HCPCS: 20550; J3301 ==

== ENCOUNTER 2023-03-10 07:24 | Outpatient (AMB) | payer OTHER, SELFPAY ==
--- NOTE | 2023-03-10 07:34 | A.OFFPC_ITS ---
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 Accompanied by: Self / Same As Patient Allergies No Known Allergies Allergy (Verified 03/10/23 07:54) Medication List - Last Reconciled 03/10/23 by PUSHPA Mendez ibuprofen 600 mg PO Q8H PRN 90 days omeprazole 20 mg PO DAILY 90 days upadacitinib ER (Rinvoq) 15 mg PO DAILY Tobacco use date assessed: 03/10/23 Dental Screening Dental Screen Date: 03/10/23 Did you have a dental visit in the last 12 months?: No Did you have a dental problem in the last 6 months where you did not have access to dental care?: No Was dental information given to patient?: Patient has dentist HPI HPI Comments History of Present Illness Details 57-year-old female past medical history significant for rheumatoid arthritis, GERD, hypercholesteremia and vitamin-D deficiency. Patient of that is today for physical exam. Review of the notes patient continues to follow with rheumatology for rheumatoid arthritis continues on Rinvoq 15mg daily for this. Patient denies any chest pain palpitations shortness of and syncope. Patient work physical form completed,in office eye exam. Physical form was baseline only by patients MD, Requested patients Pcp Dr. Cardenas to sign off on physical form. Eye Exam:Recommended Pap Smear: Patient recommended to call OBGYN to schedule pap smear as she is over due. Mammogram: April 2021, order entered Refused flu shot. [facility] Medical History Vitamin D deficiency Class 1 obesity with body mass index (BMI) of 34.0 to 34.9 in adult GERD (gastroesophageal reflux disease) Mixed hyperlipidemia Hypercholesterolemia Peptic ulcer disease Surgical History History of gastric surgery History of tubal ligation Family History Mother Diabetes HTN (hypertension) CVD (cardiovascular disease) Father High cholesterol Stroke Social History Household Members: Spouse Housing: House Alcohol intake: never Patient Tobacco Use Status: Never used Tobacco e-Cigarette/Vaping Use: Never Used Second Hand Smoke Exposure: No service: No Current occupational status: employed Current occupational exposures/hazards: No Cognitive needs: No Hearing needs: No Vision needs: Yes Female Reproductive History Menstrual Age of Menarche: 9 Questionnaire PHQ-9 Over the last 2 weeks, how often have you been bothered by any of the following problems? 1. Little interest or pleasure in doing things: not at all 2. Feeling down, depressed, or hopeless: not at all 3. Trouble falling or staying asleep, or sleeping too much: not at all 4. Feeling tired or having little energy: not at all 5. Poor appetite or overeating: not at all 6. Feeling bad about yourself - or that you are a failure or have let yourself or your family down: not at all 7. Trouble concentrating on things, such as reading the newspaper or watching television: not at all 8. Moving or speaking so slowly that other people could have noticed. Or the opposite - being so fidgety or restless that you have been moving around a lot more than usual: not at all 9. Thoughts that you would be better off or of hurting yourself in some way: not at all Total score: 0 Depression Screening Interpretation: Negative Depression Screening Done: Yes Source: Developed by Drs. Diego Shea, Celeste Avendano, You Austin and colleagues, with an educational hilda from [employer] Thrive Questionnaire Date Thrive assessed: 03/10/23 I am a: Patient What is your living situation today?: I have a steady place to live Within the past 12 months, did the food you bought not last and you didn't have the money to get more?: Never true Within the past 12 months, did you worry whether your food would run out before you got money to buy more?: Never true Do you have trouble paying for medicines?: No Do you have trouble getting transportation to medical appointments?: No Do you have trouble paying your heating and electricity bill?: No Do you have trouble taking care of your child, family member or friend?: No Do you have trouble with day-to-day activities such as bathing, preparing meals, shopping, managing finances, etc.?: No Are you currently unemployed and looking for a job?: No Are you interested in more education?: No Please select the resources that you would like help with: None Currently or been in a relationship where the following occur: no concerns reported AUDIT C Alcohol Use Questionnaire (AUDIT-C) 1. How often do you have a drink containing alcohol?: Never Total Score: 0 ARJUN-7 AMB Questionnaire ARJUN-7 Date ARJUN - 7 assessed: 03/10/23 Feeling nervous, anxious, or on edge: 0 = Not at all Not being able to stop or control worryin = Not at all Worrying too much about different things: 0 = Not at all Trouble relaxin = Not at all Being so restless that it is hard to sit still: 0 = Not at all Becoming easily annoyed or irritable: 0 = Not at all Feeling afraid as if something awful might happen: 0 = Not at all Total ARJUN-7 score (0-4 normal; 5-9 mild; 10-14 moderate; 15-21 severe): 0 Source: Developed by Drs. Diego Shea, Celeste Avendano, You Austin and colleagues, with an educational hilda from [employer] ARJUN-7 Assessment Billing ARJUN-7 Assessment Tool: ARJUN-7 Assessment 67609 Review of Systems Const Denies chills, Denies fatigue, Denies fever(s) and Denies poor appetite Eyes Denies no additional complaints ENT Reports Normal hearing present Card Denies chest pain, Denies syncope, Denies rapid heart rate and Denies dyspnea Resp Denies cough and Denies dyspnea GI Denies change in stool character, Denies constipation, Denies diarrhea, Denies nausea and Denies vomiting Denies urinary frequency, Denies dysuria and Denies urinary urgency Neuro Reports Normal hearing present, Denies confusion and Denies syncope Psych Denies confusion Endo Denies fatigue Physical exam (Primary Care) Vital Signs: Last Vital Signs Pulse 67 03/10/23 07:36 BP 136/84 03/10/23 07:36 Pulse Ox 98 03/10/23 07:36 Oxygen Delivery Method Room Air 03/10/23 07:36 BMI result Body Mass Index 34.8 Tobacco/Smoking Status: Tobacco use Status Tobacco use date assessed 03/10/23 03/10/23 07:44 Patient Tobacco Use Status Never used Tobacco 03/10/23 07:44 e-Cigarette/Vaping Use Never Used 03/10/23 07:44 PHQ-9: PHQ-9 Score PHQ-9: Total score 0 03/10/23 08:07 Depression Screening Interpretation: Negative Thrive Assessment: Date of Thrive Assessment Date Thrive assessed 03/10/23 03/10/23 07:44 Currently or been in a relationship where the following occur: no concerns reported Const General: No confusion Orientation/consciousness: No confusion HENMT Head: Yes normocephalic and Yes atraumatic Ears: external ears normal and TM's normal bilaterally General nose exam: Normal external nose present and Normal nasal mucous membranes and turbinates present Face and sinus: Yes normal facial exam and Yes sinuses nontender Mouth: moist mucous membranes Throat: Yes tonsils normal Eyes Conjunctivae: conjunctivae normal Sclerae: sclerae normal Pupils: Equal, round and reactive pupils present and Pupils normal by confrontation EOM: EOMs intact bilaterally Direct Ophthalmoscopy: normal light reflex Neck Neck: Yes no lymphadenopathy and Yes supple Thyroid: Thyroid normal Chest Chest palpation & inspection: normal inspection of the chest Resp Effort & Inspection: normal respiratory effort Auscultation: clear to auscultation bilaterally, no crackles, no rhonchi and no wheezes Cardio Rate: regular rate Rhythm: regular rhythm Peripheral pulses: radial pulses present and dorsalis pedis present GI Inspection: Yes normal to inspection Palpation (GI): Soft to palpation, nontender and No hepatosplenomegaly present Auscultation: normoactive bowel sounds Skin General skin exam: no rashes or lesions noted Neuro General: No confusion Cranial nerves: Yes Equal, round and reactive pupils present and Yes Normal hearing present Cognition (Neuro): normal cognition Gait exam (Neuro): Normal gait present Motor exam (neuro): 5/5 motor strength present throughout Deep tendon reflexes (DTR's): Right brachioradialis reflex intensity grade: 2+, Left brachioradialis reflex intensity grade: 2+, Right patellar reflex intensity grade: 2+ and Left patellar reflex intensity grade: 2+ Extrem General: No edema Office Procedures Flu Questionnaire Does the patient have a severe egg allergy?: No Immunizations flu vacc [id number] 6mos up(PF) 60 mcg(15 mcgx4)/0.5 mL IM syringe Performing Provider: PUSHPA Mendez [facility] Documented (not given) by: ZOEY Carver on 03/10/23 07:45 Reason Not Given: Patient Refused Assessment and Plan Assessment & Plan (1) Pure hypercholesterolemia: Code(s): E78.00 - Pure hypercholesterolemia, unspecified Plan: Fasting lipid panel ordered. Follow low cholesterol diet (2) GERD (gastroesophageal reflux disease): Code(s): K21.9 - Gastro-esophageal reflux disease without esophagitis Plan: Continue on omeprazole. Avoid the foods that cause that, usually spicy foods, tomato products, juices, coffee, soda and foods that you're sensitive to.? After eating do not lie down, allow 3-4 hours before lying down. And keep the head of the bed above 30 degrees to avoid the acid from going up (3) Physical exam, annual: Code(s): Z00.00 - Encounter for general adult medical examination without abnormal findings Plan: Follow up in 1 year Orders: Orders Influenza [id number] Immunization Today Z23 - Encounter for immunization MM screening mammo BI Today Z12.31 - Encounter for screening mammogram for malignant neoplasm of breast Lipid Panel Today Z13.220 - Encounter for screening for lipoid disorders TSH reflex Free T4 Today Z13.29 - Encounter for screening for other suspected endocrine disorder Comprehensive [place]. Panel Fast Today E78.00 - Pure hypercholesterolemia, unspecified Coding Level of Care Code Est Pt Prev Care 40-64y(09797) Diagnoses Pure hypercholesterolemia E78.00 GERD (gastroesophageal reflux disease) K21.9 Physical exam, annual Z00.00 Additional Codes ARJUN-7 Assessment Billing - ARJUN-7 Assessment Tool: ARJUN-7 Assessment 76782 ([id number]) PHQ-9 - 78632 - PHQ-9 Billing: ([id number])
[2023-03-10 07:36] VITALS: BP 136/84; PULSE 67; O2SAT 98; BMI 34.8
== END 2023-03-10 08:09 | disposition home or self-care (01) ==
PROVIDERS: PCP Internal Medicine; Visit Provider Nurse Practitioner Family
DX: Z00.00 Encounter for general adult medical examination without abnormal findings (principal); E78.00 Pure hypercholesterolemia, unspecified; K21.9 Gastro-esophageal reflux disease without esophagitis
CPT/HCPCS: 99396

== ENCOUNTER 2023-03-14 14:36 | Outpatient (REF) | payer OTHER, SELFPAY | END 2023-03-14 14:37 | disposition home or self-care (01) | LOC: HO.MAMMO 14:36 | PROVIDERS: PCP Internal Medicine; Visit Provider Nurse Practitioner Family | DX: Z12.31 Encounter for screening mammogram for malignant neoplasm of breast (principal) | CPT/HCPCS: 77063; 77067 ==

== ENCOUNTER → 2023-03-14 14:45 | Outpatient (BNV) | payer OTHER, SELFPAY | PROVIDERS: PCP Internal Medicine; Visit Provider Radiology Diagnostic Radiology | DX: Z12.31 Encounter for screening mammogram for malignant neoplasm of breast (principal) | CPT/HCPCS: 77063; 77067 ==

== ENCOUNTER 2023-06-03 11:33 | Outpatient (REF) | payer OTHER, SELFPAY ==
[2023-06-03 11:52] LABS: MANUAL DIFF FLAG NO
[2023-06-03 12:47] LABS: Basophils Percent Auto 0.7 % (0-2); Eosinophils Absolute Auto 0.1 X10*3/uL (0.0-0.4); Eosinophils Percent Auto 1.7 % (0-4); Hematocrit 37.6 % (37.0-47.0); Hemoglobin 12.2 g/dl (12.0-16.0); Lymphocytes Absolute Auto 1.4 X10*3/uL (1.2-4.9); Lymphocytes Percent Auto 33.5 % (20-40); Mean Corpuscular HGB Conc 32.4 g/dl (31.0-35.0); Mean Corpuscular Hemoglobin 30.1 pg (27.0-33.0); Mean Corpuscular Volume 92.8 fL (80.0-98.0); Mean Platelet Volume 10.4 fL (9.4-12.3); Monocytes Absolute Auto 0.4 X10*3/uL (0.1-1.2); Monocytes Percent Auto 9.5 % (2-11); Neutrophils Absolute Auto 2.3 x10*3/uL (2.0-8.3); Neutrophils Percent Auto 54.6 % (45-73); Platelet Count 225 X10*3/uL (160-400); Red Blood Count 4.05 X10*6/uL (4.20-5.50); Red Cell Distribution Width 14.1 % (11.0-16.0); White Blood Count 4.1 X10*3/uL (4.8-10.8)
[2023-06-03 13:29] LABS: Erythrocyte Sedimentation Rate 21 MM/HR (0-20)
[2023-06-03 14:04] LABS: Alanine Aminotransferase 15 U/L (0-31); Albumin Level 4.1 g/dL (3.5-5.0); Alkaline Phosphatase 65 U/L (39-117); Anion Gap 9 (12-20); Aspartate Amino Transferase 17 U/L (5-31); Bilirubin Total 0.7 mg/dL (0.0-1.0); Blood Urea Nitrogen 10 mg/dL (9-16); C Reactive Protein 0.18 mg/dL (< or = 0.50); Calcium 9.2 mg/dL (8.4-10.2); Carbon Dioxide 27 mmol/L (22-29); Chloride 108 mmol/L (96-108); Cholesterol 291 mg/dL (<200); Estimated Glomerular Filt Rate > 60; Glucose Fasting 87 mg/dL (60-99); HDL Cholesterol 99 mg/dL (>40); LDL Cholesterol Calculated 175 mg/dL (<100); Potassium 3.8 mmol/L (3.3-5.1); Sodium 140 mmol/L (135-145); TSH reflex Free T4 2.22 uIU/mL (0.32-4.0); Total Protein 7.2 g/dL (6.5-8.0); Triglycerides 85 mg/dL (<150)
== END 2023-06-03 11:34 | disposition home or self-care (01) ==
LOC: HO.LAB 11:33
PROVIDERS: Nurse Practitioner Family; Visit Provider Internal Medicine Rheumatology
DX: Z13.220 Encounter for screening for lipoid disorders (principal); Z13.29 Encounter for screening for other suspected endocrine disorder; E78.00 Pure hypercholesterolemia, unspecified; M05.9 Rheumatoid arthritis with rheumatoid factor, unspecified; Z79.899 Other long term (current) drug therapy
CPT/HCPCS: 36415; 80053; 80061; 84443; 85025; 85652; 86140

== ENCOUNTER 2023-06-04 11:01 | Outpatient (AMB) | payer OTHER, SELFPAY ==
--- NOTE | 2023-06-04 11:08 | A.OFFVIS_ITS ---
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 Striper Spray Gun Required: No Accompanied by: Self / Same As Patient Allergies No Known Allergies Allergy (Verified 06/04/23 11:09) HPI HPI Comments History of Present Illness Details Ms Kuhn, 57-year-old female here for follow up of Rheumatoid Arthritis. She has a past medical history significant for GERD, hypercholesteremia and vitamin-D deficiency. She remains on Rinvoq 15 mg daily with an occasional 600 mg ibuprofen. Per patient she takes the ibuprofen once or twice a week. 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 Areas of pain include the wrists, right PIP and left MCPs. She denies knee pain bur reports some pain in the left Achilles. Pap Smear: Patient recommended to call OBGYN to schedule pap smear as she is over due. Mammogram: April 2021, order entered Refused flu shot. [facility] Medical History Vitamin D deficiency Class 1 obesity with body mass index (BMI) of 34.0 to 34.9 in adult GERD (gastroesophageal reflux disease) Mixed hyperlipidemia Hypercholesterolemia Peptic ulcer disease Surgical History History of gastric surgery History of tubal ligation Family History Mother Diabetes HTN (hypertension) CVD (cardiovascular disease) Father High cholesterol Stroke Social History Household Members: Spouse Housing: House Alcohol intake: never Patient Tobacco Use Status: Never used Tobacco e-Cigarette/Vaping Use: Never Used Second Hand Smoke Exposure: No service: No Current occupational status: employed Current occupational exposures/hazards: No Cognitive needs: No Hearing needs: No Vision needs: Yes Female Reproductive History Menstrual Age of Menarche: 9 Review of Systems Const All systems reviewed & are unremarkable except as noted in HPI and below Physical Exam Vital Signs: Last Vital Signs Temp 97 F 06/04/23 11:12 Pulse 76 06/04/23 11:12 BP 110/70 06/04/23 11:12 Pulse Ox 96 06/04/23 11:12 Oxygen Delivery Method Room Air 06/04/23 11:12 BMI result Body Mass Index 32.4 APPEARANCE: Patient in no acute distress, nourished, groomed EYES no redness, pupils equal and reactive to light, eyelids normal JOINT EXAM:?? Cervical Spine:? Full range of motion without pain; no tenderness. Thoracic Spine: No scoliosis.? No tenderness on palpation. Lumbar Spine:? Alignment normal.? Full range of motion without pain, no tenderness. Hands: LEFT:? Normal pain-free range of motion with slight tenderness at the 2nd through 4th MCP with minimal swelling.. There is some mild bony enlargement at the 2nd through 4th PIP joints. She has some slightly tender bony enlargement at the 2nd PIP. She has otherwise no other soft tissue swelling no tenderness. No thenar atrophy, flexor tendon triggering or sensory loss.. ? RIGHT: Mild pain with range of motion at the 5th finger. There is some slight swelling and tenderness at the 3rd MCP and there is [id number] tenderness along the 5th flexor tendon. There is slight tenderness of the 2nd through 4th flexor tendons. She has some nontender bony enlargement at the thumb IP and the 2nd 3rd PIP joints. No sensory loss or thenar atrophy. Wrists:? LEFT:? Mild pain with flexion and extension at 60 degrees with some ulnar aspect tenderness with questionable swelling. No increased warmth erythema. ? RIGHT: Mild pain with flexion extension at 60 degrees. There is some mild ulnar tenderness with no swelling. No redness or warmth. Elbows: Normal pain-free range of motion without tenderness, swelling, increased warmth or erythema. Shoulders: Normal pain-free range of motion without tenderness, swelling, increased warmth or erythema. Hips:? Full range of motion without pain. Hip bursa:? No tenderness. Knees:?? Normal pain-free range of motion with slight patellofemoral crepitus but no effusion, tenderness, swelling, increased warmth or erythema.? Ankles: Left: There is mild with AP motion at the ankle. There is some mild tenderness along the Achilles tendon without redness, bruising or swelling. Right: Normal pain-free range of motion without tenderness, swelling, increased warmth or erythema. Feet: Left: Pain-free range of motion with some slight tenderness at the 3rd and 4th MTP joints without swelling. Right: Normal pain-free range of motion without tenderness, swelling, increased warmth or erythema. ? Results Reviewed Results Reviewed: Laboratory Tests 06/03/23 11:49 WBC 4.1 L RBC 4.05 L ESR 21 H AST 17 ALT 15 Cholesterol 291 H LDL Cholesterol, Calc 175 H TSH 2.22 Assessment & Plan Assessment & Plan (1) Long-term use of immunosuppressant medication: Code(s): Z79.60 - senior living (current) use of unspecified immunomodulators and immunosuppressants (2) Flexor tenosynovitis of finger: Code(s): M65.9 - Synovitis and tenosynovitis, unspecified (3) Seropositive rheumatoid arthritis: Comment: Humira: May 2020- August 2020- continued pain Methotrexate: January 2018-May 2020-GI upset Rinvoq- August 2020- present Code(s): M05.9 - Rheumatoid arthritis with rheumatoid factor, unspecified Plan #Rheumatoid arthritis/Tenosynovitis of finger: Miss Kuhn is doing well overall. She does have some tender joints but in all she is functioning reasonably well doing daycare. The corticosteroid injection to the right 5th finger flexor tendon at last visit was helpful. The lab work looked good with normal CRP and minimally elevated sed rate (21). We will continue with the Rinvoq 15mg QD. The patient is scheduled to return in 4 months with lab work before that visit. #Long-term Use of Rinvog: We will continue to monitor her lipids and liver function and assess for blood dyscrasias. The patient knows to stop taking Rinvoq and seek immediate medical attention should she develop a fever or other signs and symptoms of an infection. Orders: Orders C Reactive Protein 4 Months M05.9 - Rheumatoid arthritis with rheumatoid factor, unspecified, Z79.60 - senior living (current) use of unspecified immunomodulators and immunosuppressants Lipid Panel 4 Months M05.9 - Rheumatoid arthritis with rheumatoid factor, unspecified, Z79.60 - senior living (current) use of unspecified immunomodulators and immunosuppressants Erythrocyte Sedimentation Rate 4 Months M05.9 - Rheumatoid arthritis with rheumatoid factor, unspecified, Z79.60 - senior living (current) use of unspecified immunomodulators and immunosuppressants Comprehensive Met. Panel 4 Months M05.9 - Rheumatoid arthritis with rheumatoid factor, unspecified, Z79.60 - senior living (current) use of unspecified immunomodulators and immunosuppressants Complete Blood Count Auto Diff 4 Months M05.9 - Rheumatoid arthritis with rheumatoid factor, unspecified, Z79.60 - senior living (current) use of unspecified immunomodulators and immunosuppressants Coding Level of Care Code Est Pt Level 3 (59263) Diagnoses Long-term use of immunosuppressant medication Z79.60 Flexor tenosynovitis of finger M65.9 Seropositive rheumatoid arthritis M05.9
[2023-06-04 11:12] VITALS: BP 110/70; PULSE 76; TEMP 36.1; O2SAT 96; BMI 32.4
== END 2023-06-04 11:27 | disposition home or self-care (01) ==
PROVIDERS: PCP Internal Medicine; Visit Provider Nurse Practitioner Family
DX: M05.79 Rheumatoid arthritis with rheumatoid factor of multiple sites without organ or systems involvement (principal); M65.9 Synovitis and tenosynovitis, unspecified; Z79.60 Long term (current) use of unspecified immunomodulators and immunosuppressants
CPT/HCPCS: 99214

== ENCOUNTER → 2023-06-04 11:01 | Outpatient (BNVA) | payer OTHER, SELFPAY | PROVIDERS: PCP Internal Medicine; Visit Provider Nurse Practitioner Family ==

== ENCOUNTER 2023-10-04 10:31 | Outpatient (REF) | payer OTHER, SELFPAY ==
[2023-10-04 10:48] LABS: MANUAL DIFF FLAG NO
[2023-10-04 11:22] LABS: Basophils Percent Auto 0.5 % (0-2); Eosinophils Absolute Auto 0.1 X10*3/uL (0.0-0.4); Eosinophils Percent Auto 2.2 % (0-4); Hematocrit 35.9 % (37.0-47.0); Hemoglobin 11.9 g/dl (12.0-16.0); Imm Gran Abs Auto 0.01 X10*3/uL (0.00-0.03); Imm Gran Pct Auto 0.3 % (0.0-0.4); Lymphocytes Absolute Auto 1.8 X10*3/uL (1.2-4.9); Lymphocytes Percent Auto 48.8 % (20-40); Mean Corpuscular HGB Conc 33.1 g/dl (31.0-35.0); Mean Corpuscular Hemoglobin 30.6 pg (27.0-33.0); Mean Corpuscular Volume 92.3 fL (80.0-98.0); Monocytes Absolute Auto 0.3 X10*3/uL (0.1-1.2); Monocytes Percent Auto 7.9 % (2-11); Neutrophils Absolute Auto 1.5 x10*3/uL (2.0-8.3); Neutrophils Percent Auto 40.3 % (45-73); Platelet Count 230 X10*3/uL (160-400); Red Blood Count 3.89 X10*6/uL (4.20-5.50); White Blood Count 3.7 X10*3/uL (4.8-10.8)
[2023-10-04 11:56] LABS: Alanine Aminotransferase 15 U/L (0-31); Alkaline Phosphatase 62 U/L (39-117); Anion Gap 12 (12-20); Aspartate Amino Transferase 19 U/L (5-31); Bilirubin Total 0.5 mg/dL (0.0-1.0); Blood Urea Nitrogen 14 mg/dL (9-16); Calcium 8.8 mg/dL (8.4-10.2); Carbon Dioxide 24 mmol/L (22-29); Chloride 109 mmol/L (96-108); Cholesterol 260 mg/dL (<200); Estimated Glomerular Filt Rate > 60; Glucose Random 86 mg/dL (60-115); HDL Cholesterol 99 mg/dL (>40); LDL Cholesterol Calculated 148 mg/dL (<100); Potassium 4.3 mmol/L (3.3-5.1); Sodium 141 mmol/L (135-145); Total Protein 7.1 g/dL (6.5-8.0); Triglycerides 68 mg/dL (<150)
[2023-10-04 12:07] LABS: Erythrocyte Sedimentation Rate 21 MM/HR (0-20)
== END 2023-10-04 10:32 | disposition home or self-care (01) ==
LOC: HO.LAB 10:31
PROVIDERS: PCP Internal Medicine; Visit Provider Nurse Practitioner Family
DX: Z79.60 Long term (current) use of unspecified immunomodulators and immunosuppressants (principal); M05.9 Rheumatoid arthritis with rheumatoid factor, unspecified
CPT/HCPCS: 36415; 80053; 80061; 85025; 85652; 86140

== ENCOUNTER 2023-10-09 09:16 | Outpatient (AMB) | payer OTHER, SELFPAY ==
--- NOTE | 2023-10-09 09:17 | MHC.OFFVIS ---
Vital Signs 10/09/23 09:24 Height 5 ft 1 in Weight 167 lb 8.821 oz BMI 31.7 BP 140/100 H Blood Pressure Location Rt brachial Position Sitting Pulse 76 Pulse Oximetry (%) 96 Intake Visit Reasons: Flare Up Intake Note: Patient of Tanna Doe NP, presents today complaining of generalized join pain, swelling and redness x 1+ week. Credit Risk Manager Required: No Accompanied by: Self / Same As Patient Allergies No Known Allergies Allergy (Verified 10/09/23 09:18) Medication List - Last Reconciled 10/09/23 by Beryl Davis MD ibuprofen 600 mg PO Q8H PRN 90 days omeprazole 20 mg PO DAILY 90 days prednisone Take 3 tabs by mouth daily for 3 days, 2 tabs daily for 1 week and 1 tab daily for 1 week then stop Rinvoq ER (upadacitinib) 15 mg PO DAILY NS HPI Comments Details: This is a 58-year-old female with seropositive RA who returns for follow-up. Patient stated that over the last 1-2 weeks she has been having a flare-up of her arthritis especially involving her left hand and left lower extremity including her left knee left ankle and foot. He has not been sick recently. 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 She has taken ibuprofen once or twice over the last week. [facility] Medical History Vitamin D deficiency Class 1 obesity with body mass index (BMI) of 34.0 to 34.9 in adult GERD (gastroesophageal reflux disease) Mixed hyperlipidemia Hypercholesterolemia Peptic ulcer disease Surgical History History of gastric surgery History of tubal ligation Family History Mother Diabetes HTN (hypertension) CVD (cardiovascular disease) Father High cholesterol Stroke Social History Household Members: Spouse Housing: House Alcohol intake: never Patient Tobacco Use Status: Never used Tobacco e-Cigarette/Vaping Use: Never Used Second Hand Smoke Exposure: No service: No Current occupational status: employed Current occupational exposures/hazards: No Cognitive needs: No Hearing needs: No Vision needs: Yes Female Reproductive History Menstrual Age of Menarche: 9 Review of Systems [facility] [place] Reports arthralgias, Reports joint swelling and Reports stiffness Physical Exam Vital Signs: Last Vital Signs Pulse 76 10/09/23 09:24 BP 140/100 H 10/09/23 09:24 Pulse Ox 96 10/09/23 09:24 BMI result Body Mass Index 31.7 Const General: cooperative, healthy appearing and comfortable Nutritional Appearance: obese Orientation/consciousness: patient oriented x3 Limitations: no limitations HEENT Head: Yes normocephalic and Yes atraumatic Mouth: moist mucous membranes Resp Effort & Inspection: normal respiratory effort and able to speak in complete sentences Auscultation: clear to auscultation bilaterally Cardio Rate: regular rate Rhythm: regular rhythm Skin General skin exam: no rashes or lesions noted Neuro General: patient oriented x3 Extrem Other: No swelling or tenderness right hand or wrist but mildly reduced right hand retail pricing coordinator strength and pain with full wrist extension and flexion Right elbow pain with full flexion Unable to fully abduct her right shoulder Shoulder pain with abduction Left 2nd and 3rd the swelling and tenderness Reduced left hand retail pricing coordinator strength Bilateral knee warmth Left ankle swelling warmth and tenderness Bilateral diffusely tender MTPs Puffiness of her toes bilaterally Assessment & Plan Assessment & Plan (1) Seropositive rheumatoid arthritis: Comment: Humira: May 2020- August 2020- continued pain Methotrexate: January 2018-May 2020-GI upset Rinvoq- August 2020- present Code(s): M05.9 - Rheumatoid arthritis with rheumatoid factor, unspecified Category: Medical Plan: This is a 58-year-old female with seropositive RA who presents for follow-up. Over the last 1-2 weeks patient has been having a flare-up. On exam she has multiple swollen and tender joints. Prednisone taper prescribed. Advised patient to take her omeprazole regularly. Continue with Rinvoq for now. Will continue to monitor patient. If she continues to have flare-ups, we will have to modify her DMARD treatment. 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 (current) use of unspecified immunomodulators and immunosuppressants Category: Medical Plan I spent 30 minutes reviewing patient's chart, evaluating patient, ordering diagnostic workup, counseling patient and documenting in the chart Orders: Orders C Reactive Protein 2 Months M05.9 - Rheumatoid arthritis with rheumatoid factor, unspecified, Z79.60 - [facility] (current) use of unspecified immunomodulators and immunosuppressants Erythrocyte Sedimentation Rate 2 Months M05.9 - Rheumatoid arthritis with rheumatoid factor, unspecified, Z79.60 - penitentiary (current) use of unspecified immunomodulators and immunosuppressants Hepatitis A,B,C Profile 2 Months Z11.59 - Encounter for screening for other viral diseases Complete Blood Count Auto Diff 2 Months M05.9 - Rheumatoid arthritis with rheumatoid factor, unspecified, Z79.60 - intermodal dispatcher (current) use of unspecified immunomodulators and immunosuppressants Comprehensive Met. 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
[2023-10-09 09:24] VITALS: BP 140/100; PULSE 76; O2SAT 96; BMI 31.7
== END 2023-10-09 09:42 | disposition home or self-care (01) ==
LOC: HO.RHE 09:16
PROVIDERS: PCP Internal Medicine; Visit Provider Student in an Organized Health Care Education/Training Program
DX: M05.79 Rheumatoid arthritis with rheumatoid factor of multiple sites without organ or systems involvement (principal); Z79.60 Long term (current) use of unspecified immunomodulators and immunosuppressants
CPT/HCPCS: 99214

== ENCOUNTER → 2023-10-09 09:16 | Outpatient (BNVA) | payer OTHER, SELFPAY | PROVIDERS: PCP Internal Medicine; Visit Provider Student in an Organized Health Care Education/Training Program ==

== ENCOUNTER 2023-12-10 08:46 | Outpatient (REF) | payer OTHER, SELFPAY ==
[2023-12-10 09:03] LABS: MANUAL DIFF FLAG NO
[2023-12-10 09:19] LABS: Basophils Percent Auto 0.6 % (0-2); Eosinophils Percent Auto 1.1 % (0-4); Hemoglobin 12.5 g/dl (12.0-16.0); Imm Gran Abs Auto 0.01 X10*3/uL (0.00-0.03); Imm Gran Pct Auto 0.3 % (0.0-0.4); Lymphocytes Absolute Auto 1.7 X10*3/uL (1.2-4.9); Lymphocytes Percent Auto 48.6 % (20-40); Mean Corpuscular HGB Conc 32.9 g/dl (31.0-35.0); Mean Corpuscular Hemoglobin 30.6 pg (27.0-33.0); Mean Corpuscular Volume 93.1 fL (80.0-98.0); Mean Platelet Volume 10.2 fL (9.4-12.3); Monocytes Absolute Auto 0.3 X10*3/uL (0.1-1.2); Monocytes Percent Auto 7.6 % (2-11); Neutrophils Absolute Auto 1.5 x10*3/uL (2.0-8.3); Neutrophils Percent Auto 41.8 % (45-73); Platelet Count 216 X10*3/uL (160-400); Red Blood Count 4.08 X10*6/uL (4.20-5.50); Red Cell Distribution Width 13.6 % (11.0-16.0); White Blood Count 3.5 X10*3/uL (4.8-10.8)
[2023-12-10 10:02] LABS: Erythrocyte Sedimentation Rate 7 MM/HR (0-20)
[2023-12-10 10:07] LABS: Alanine Aminotransferase 13 U/L (0-31); Albumin Level 4.4 g/dL (3.5-5.0); Alkaline Phosphatase 68 U/L (39-117); Anion Gap 10 (12-20); Aspartate Amino Transferase 20 U/L (5-31); Bilirubin Total 0.7 mg/dL (0.0-1.0); Blood Urea Nitrogen 15 mg/dL (9-16); C Reactive Protein < 0.04 mg/dL (< or = 0.50); Calcium 9.2 mg/dL (8.4-10.2); Carbon Dioxide 28 mmol/L (22-29); Chloride 108 mmol/L (96-108); Estimated Glomerular Filt Rate > 60; Glucose Random 96 mg/dL (60-115); Potassium 3.9 mmol/L (3.3-5.1); Sodium 142 mmol/L (135-145); Total Protein 7.1 g/dL (6.5-8.0)
[2023-12-10 10:19] LABS: HBS Num1 0.07 mIU/mL (0-7.99); HBc Num1 0.09 S/CO (0.00-0.79); HBsAGNum1 0.26 S/CO (0.00-0.99); Hepatitis A Antibody IgM 0.14 Index (0-0.79); Hepatitis B Core Antibody Nonreactive (Nonreactive); Hepatitis B Surface Antigen Negative (Negative); ~HepC Num1 0.05 S/CO (0.00-0.79); ~Hepatitis A Antibody IgM Nonreactive (Nonreactive); ~Hepatitis B Surface Antibody NONREACTIVE (Nonreactive); ~Hepatitis C Antibody Nonreactive (Nonreactive)
[2023-12-13 00:09] LABS: TS Negative Control Passed; TS Panel A 2; TS Panel B 1; TS Positive Control Passed; TSpotTB Negative (Negative)
== END 2023-12-10 08:47 | disposition home or self-care (01) ==
LOC: HO.LAB 08:46
PROVIDERS: PCP Internal Medicine; Visit Provider Student in an Organized Health Care Education/Training Program
DX: M05.9 Rheumatoid arthritis with rheumatoid factor, unspecified (principal); Z79.60 Long term (current) use of unspecified immunomodulators and immunosuppressants; Z11.59 Encounter for screening for other viral diseases; Z22.7 Latent tuberculosis
CPT/HCPCS: 36415; 80053; 85025; 85652; 86140; 86481; 86704; 86706; 86709; 86803; 87340

== ENCOUNTER 2023-12-10 14:27 | Outpatient (AMB) | payer OTHER, SELFPAY ==
--- NOTE | 2023-12-10 14:30 | A.OFFVIS_ITS ---
Vital Signs 12/10/23 14:33 Height 5 ft 1 in Weight 160 lb 14.999 oz BMI 30.4 BP 130/82 Blood Pressure Location Rt brachial Position Sitting Pulse 71 Pulse Source Pulse Oximeter Pulse Oximetry (%) 98 Oxygen Delivery Method Room Air Intake Visit Reasons: RA/CM Intake Note: Patient presents for RA. Allergies No Known Allergies Allergy (Verified 12/10/23 14:33) Medication List - Last Reconciled 12/10/23 by Beryl Davis MD ibuprofen 600 mg PO Q8H PRN 90 days omeprazole 20 mg PO DAILY 90 days prednisone Take 3 tabs by mouth daily for 3 days, 2 tabs daily for 1 week and 1 tab daily for 1 week then stop Rinvoq ER (upadacitinib) 15 mg PO DAILY NS HPI Comments Details: This is a 58-year-old female with seropositive RA who returns for follow-up. Last visit patient was having a flare-up, I prescribed a prednisone taper with good effect. Today she is doing quite well. She remains on Rinvoq 15 mg p.o. daily. She gets intermittent right knee pain but no significant swelling. She takes ibuprofen once daily as needed on 4 times a month for her joint pains [facility] Medical History Vitamin D deficiency Class 1 obesity with body mass index (BMI) of 34.0 to 34.9 in adult GERD (gastroesophageal reflux disease) Mixed hyperlipidemia Hypercholesterolemia Peptic ulcer disease Surgical History History of gastric surgery History of tubal ligation Family History Mother Diabetes HTN (hypertension) CVD (cardiovascular disease) Father High cholesterol Stroke Social History Household Members: Spouse Housing: House Alcohol intake: never Patient Tobacco Use Status: Never used Tobacco e-Cigarette/Vaping Use: Never Used Second Hand Smoke Exposure: No service: No Current occupational status: employed Current occupational exposures/hazards: No Cognitive needs: No Hearing needs: No Vision needs: Yes Female Reproductive History Menstrual Age of Menarche: 9 Review of Systems [facility] Reports arthralgias, Denies joint swelling and Denies stiffness Physical Exam Vital Signs: Last Vital Signs Pulse 71 12/10/23 14:33 BP 130/82 12/10/23 14:33 Pulse Ox 98 12/10/23 14:33 Oxygen Delivery Method Room Air 12/10/23 14:33 BMI result Body Mass Index 30.4 Const General: cooperative, healthy appearing and comfortable Nutritional Appearance: obese Orientation/consciousness: patient oriented x3 Limitations: no limitations HEENT Head: Yes normocephalic and Yes atraumatic Mouth: moist mucous membranes Resp Effort & Inspection: normal respiratory effort and able to speak in complete sentences Auscultation: clear to auscultation bilaterally Cardio Rate: regular rate Rhythm: regular rhythm Skin General skin exam: no rashes or lesions noted Neuro General: patient oriented x3 Extrem Other: No active synovitis today Bilateral knee crepitus Right knee pain with with flexion, unable to completely flex right knee Assessment & Plan Assessment & Plan (1) Seropositive rheumatoid arthritis: Comment: Humira: May 2020- August 2020- continued pain Methotrexate: January 2018-May 2020-GI upset Rinvoq- August 2020- present Code(s): M05.9 - Rheumatoid arthritis with rheumatoid factor, unspecified Category: Medical Plan: This is a 58-year-old female with seropositive RA who presents for follow-up. On Rinvoq 15 mg p.o. daily. Patient is doing quite well with no active synovitis. Inflammatory markers normal. No recent infections Continue Rinvoq 15 mg p.o. 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 Panel 3 Months M05.9 - Rheumatoid arthritis with rheumatoid factor, unspecified C Reactive Protein 3 Months M05.9 - Rheumatoid arthritis with rheumatoid factor, unspecified Complete Blood Count Auto Diff 3 Months M05.9 - Rheumatoid arthritis with rheumatoid factor, unspecified Erythrocyte Sedimentation Rate 3 Months M05.9 - Rheumatoid arthritis with rheumatoid factor, unspecified Coding Level of Care Code Est Pt Level 4 (10513) Diagnoses Seropositive rheumatoid arthritis M05.9 Long-term use of immunosuppressant medication Z79.60
[2023-12-10 14:33] VITALS: BP 130/82; PULSE 71; O2SAT 98; BMI 30.4
== END 2023-12-10 14:53 | disposition home or self-care (01) ==
PROVIDERS: PCP Internal Medicine; Visit Provider Student in an Organized Health Care Education/Training Program
DX: M05.79 Rheumatoid arthritis with rheumatoid factor of multiple sites without organ or systems involvement (principal); Z79.60 Long term (current) use of unspecified immunomodulators and immunosuppressants
CPT/HCPCS: 99214

== ENCOUNTER 2024-03-05 08:32 | Outpatient (AMB) | payer OTHER, SELFPAY ==
--- NOTE | 2024-03-05 08:38 | A.OFFVIS_ITS ---
Vital Signs 03/05/24 08:43 Height 5 ft 1 in Weight 158 lb 15.253 oz BMI 30.0 BP 115/72 Blood Pressure Location Rt brachial Position Sitting Pulse 78 Pulse Source Pulse Oximeter Pulse Oximetry (%) 98 Oxygen Delivery Method Room Air Intake Visit Reasons: Knee pain / inj Intake Note: Patient presents for knee pain/injection. Allergies No Known Allergies Allergy (Verified 03/05/24 08:42) Medication List - Last Reconciled 03/05/24 by Beryl Davis MD ibuprofen 600 mg PO Q8H PRN 90 days omeprazole 20 mg PO DAILY 90 days prednisone Take 3 tabs by mouth daily for 3 days, 2 tabs daily for 1 week and 1 tab daily for 1 week then stop Rinvoq ER (upadacitinib) 15 mg PO DAILY NS HPI Comments Details: This is a 58-year-old female with seropositive RA who presents for an urgent visit due to abrupt onset of right knee pain. Requesting an injection. She states that she has had injections in the past in different joints including her shoulders and knees. Most recent injection in her knee was 3-4 years ago. States that injections are usually helpful without any significant side effects [facility] Medical History Vitamin D deficiency Class 1 obesity with body mass index (BMI) of 34.0 to 34.9 in adult GERD (gastroesophageal reflux disease) Mixed hyperlipidemia Hypercholesterolemia Peptic ulcer disease Surgical History History of gastric surgery History of tubal ligation Family History Mother Diabetes HTN (hypertension) CVD (cardiovascular disease) Father High cholesterol Stroke Social History Household Members: Spouse Housing: House Alcohol intake: never Patient Tobacco Use Status: Never used Tobacco e-Cigarette/Vaping Use: Never Used Second Hand Smoke Exposure: No service: No Current occupational status: employed Current occupational exposures/hazards: No Cognitive needs: No Hearing needs: No Vision needs: Yes Female Reproductive History Menstrual Age of Menarche: 9 Review of Systems [facility] Reports arthralgias Physical Exam Vital Signs: Last Vital Signs Pulse 78 03/05/24 08:43 BP 115/72 03/05/24 08:43 Pulse Ox 98 03/05/24 08:43 Oxygen Delivery Method Room Air 03/05/24 08:43 BMI result Body Mass Index 30.0 Const General: cooperative, healthy appearing and comfortable Nutritional Appearance: obese Orientation/consciousness: patient oriented x3 Limitations: no limitations HEENT Head: Yes normocephalic and Yes atraumatic Mouth: moist mucous membranes Resp Effort & Inspection: normal respiratory effort and able to speak in complete sentences Skin General skin exam: no rashes or lesions noted Neuro General: patient oriented x3 Extrem Other: No active synovitis today both hands and wrists Right knee warmth without much swelling, pain with any range of motion Walks with a limp Office Procedures Joint Injection/Aspiration Joint Injection/Aspiration Primary Site: right knee Prep: site was prepped using sterile technique and ethochloride spray was applied Injected: 40 mg of, Kenalog, with 1 mL of, 1% plain lidocaine and in the joint Approach Used: medial parapatellar Procedure: The patient tolerated the procedure well Coding Details: With the patient's consent the right knee was prepped with ChloraPrep and alcohol. The skin was anesthetized with 2 cc of 1% lidocaine. The knee was then injected with 40 mg of triamcinolone and 1 cc of I % lidocaine. The patient tolerated the procedure with no immediate adverse effects. 71779 - Large joint Procedure code (CPT) selection complete Assessment & Plan Assessment & Plan (1) Osteoarthritis of right knee: Code(s): M17.11 - Unilateral primary osteoarthritis, right knee Category: Medical Qualifiers: Osteoarthritis type: primary Qualified Code(s): M17.11 - Unilateral primary osteoarthritis, right knee Plan: This is a 58-year-old female with seropositive RA on Rinvoq who presents for an urgent visit due to right knee pain. Requesting an injection. Likely osteoarthritis. Will check bilateral knee x-rays. With patient's consent, right knee was injected with Kenalog Follow-up as scheduled in 1 week Plan I spent 16 minutes reviewing patient's chart, evaluating patient, ordering diagnostic workup, counseling patient and documenting in the chart Orders: Orders XR knee LT 3V Today M05.9 - Rheumatoid arthritis with rheumatoid factor, unspecified XR knee RT 3V Today M05.9 - Rheumatoid arthritis with rheumatoid factor, unspecified XR knee standing BI Today M05.9 - Rheumatoid arthritis with rheumatoid factor, unspecified AMB Joint Injection/Aspiration Today M17.11 - Unilateral primary osteoarthritis, right knee Coding Level of Care Code Est Pt Level 3 (35950) Diagnoses Primary osteoarthritis of right knee M17.11 Osteoarthritis type: primary CPT Codes Coding - 86347 Large joint: 00775 - Large joint ([id number])
[2024-03-05 08:43] VITALS: BP 115/72; PULSE 78; O2SAT 98
== END 2024-03-05 09:06 | disposition home or self-care (01) ==
PROVIDERS: PCP Internal Medicine; Visit Provider Student in an Organized Health Care Education/Training Program
DX: M17.11 Unilateral primary osteoarthritis, right knee (principal)
CPT/HCPCS: 20610; 99213

== ENCOUNTER → 2024-03-05 08:32 | Outpatient (BNVA) | payer OTHER, SELFPAY | PROVIDERS: PCP Internal Medicine; Visit Provider Student in an Organized Health Care Education/Training Program | DX: M17.11 Unilateral primary osteoarthritis, right knee (principal) | CPT/HCPCS: 20610; J2003; J3301 ==

== ENCOUNTER 2024-03-09 12:43 | Outpatient (REF) | payer OTHER, SELFPAY ==
--- NOTE | ~2024-03-09 | XR_ITS ---
EXAMINATION: XR KNEE RIGHT 2 VIEWS CLINICAL INFORMATION: Rheumatoid arthritis with rheumatoid factor, unspecified M05.9. COMPARISON: XR Right knee 02/20/2018 TECHNIQUE: Lateral and patellar views of the right knee FINDINGS: Limited evaluation as above. There are marginal osteophytes with nonuniform joint space narrowing and patellofemoral compartment indicative of mild to moderate osteoarthritis unchanged. No effusion. No additional abnormalities. No marginal erosions XR/XR knee RT 3V IMPRESSION: Mild to moderate osteoarthritis of the right patellofemoral joint Electronically signed by: Zachary Pedraza MD 05/11/2024 09:57 AM EST
--- NOTE | ~2024-03-09 | XR_ITS ---
EXAMINATION: XR KNEE LEFT 3 VIEWS CLINICAL INFORMATION: Rheumatoid arthritis with rheumatoid factor, unspecified M05.9. COMPARISON: XR Left knee 02/20/2018 TECHNIQUE: Three views of the left knee. FINDINGS: Mild tricompartmental osteoarthritis manifest by marginal osteophytes without joint space narrowing. No effusion. No erosions XR/XR knee LT 4V IMPRESSION: Mild osteoarthritis. Electronically signed by: Zachary Pedraza MD 05/11/2024 09:56 AM EST
[2024-03-09 13:15] LABS: MANUAL DIFF FLAG NO
[2024-03-09 13:44] LABS: Basophils Percent Auto 0.5 % (0-2); Eosinophils Percent Auto 0.5 % (0-4); Hematocrit 35.2 % (37.0-47.0); Hemoglobin 11.5 g/dl (12.0-16.0); Imm Gran Abs Auto 0.01 X10*3/uL (0.00-0.03); Imm Gran Pct Auto 0.2 % (0.0-0.4); Lymphocytes Absolute Auto 2.3 X10*3/uL (1.2-4.9); Lymphocytes Percent Auto 51.8 % (20-40); Mean Corpuscular HGB Conc 32.7 g/dl (31.0-35.0); Mean Corpuscular Hemoglobin 30.8 pg (27.0-33.0); Mean Corpuscular Volume 94.4 fL (80.0-98.0); Monocytes Absolute Auto 0.4 X10*3/uL (0.1-1.2); Monocytes Percent Auto 9.9 % (2-11); Neutrophils Absolute Auto 1.7 x10*3/uL (2.0-8.3); Neutrophils Percent Auto 37.1 % (45-73); Platelet Count 225 X10*3/uL (160-400); Red Blood Count 3.73 X10*6/uL (4.20-5.50); Red Cell Distribution Width 14.4 % (11.0-16.0); White Blood Count 4.4 X10*3/uL (4.8-10.8)
[2024-03-09 14:20] LABS: Alanine Aminotransferase 23 U/L (0-31); Albumin Level 4.3 g/dL (3.5-5.0); Alkaline Phosphatase 64 U/L (39-117); Anion Gap 10 (12-20); Aspartate Amino Transferase 20 U/L (5-31); Bilirubin Total 0.4 mg/dL (0.0-1.0); Blood Urea Nitrogen 20 mg/dL (9-16); C Reactive Protein < 0.04 mg/dL (< or = 0.50); Calcium 9.3 mg/dL (8.4-10.2); Carbon Dioxide 25 mmol/L (22-29); Chloride 111 mmol/L (96-108); Estimated Glomerular Filt Rate > 60; Glucose Random 102 mg/dL (60-115); Potassium 3.9 mmol/L (3.3-5.1); Sodium 142 mmol/L (135-145)
[2024-03-09 14:24] LABS: Erythrocyte Sedimentation Rate 12 MM/HR (0-20)
== END 2024-03-09 12:44 | disposition home or self-care (01) ==
LOC: HO.LAB 12:43
PROVIDERS: PCP Internal Medicine; Visit Provider Student in an Organized Health Care Education/Training Program
DX: M05.9 Rheumatoid arthritis with rheumatoid factor, unspecified (principal)
CPT/HCPCS: 36415; 73562; 73564; 80053; 85025; 85652; 86140

== ENCOUNTER 2024-03-11 07:29 | Outpatient (AMB) | payer OTHER, SELFPAY ==
--- NOTE | 2024-03-11 07:41 | MHC.PC.OV ---
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 Accompanied by: Self / Same As Patient Allergies No Known Allergies Allergy (Verified 03/11/24 07:52) Medication List - Last Reconciled 03/11/24 by Myrtle Graff MD ibuprofen 600 mg PO Q8H PRN 90 days omeprazole 20 mg PO DAILY 90 days Rinvoq ER (upadacitinib) 15 mg PO DAILY NS Tobacco use date assessed: 03/11/24 Dental Screening Dental Screen Date: 03/11/24 Did you have a dental visit in the last 12 months?: Yes Did you have a dental problem in the last 6 months where you did not have access to dental care?: No Was dental information given to patient?: Patient has dentist HPI HPI Comments History of Present Illness Details This is a 58-year-old female with rheumatoid arthritis that comes for her physical exam. Mammogram done last year and scheduled for this month to be repeated. I will order colonoscopy through open access. Pap smear done 2020 was normal with HPV negative. Rheumatoid arthritis follow by Rheumatology. She complains of an abdominal pain that happens once a month and I will start her on Carafate as needed. [facility] Medical History (Updated 03/11/24 @ 09:00 by Myrtle Graff MD) Vitamin D deficiency Class 1 obesity with body mass index (BMI) of 34.0 to 34.9 in adult GERD (gastroesophageal reflux disease) Mixed hyperlipidemia Hypercholesterolemia Peptic ulcer disease Surgical History History of gastric surgery History of tubal ligation Family History Mother Diabetes HTN (hypertension) CVD (cardiovascular disease) Father High cholesterol Stroke Social History Household Members: Spouse Housing: House Alcohol intake: never Patient Tobacco Use Status: Never used Tobacco e-Cigarette/Vaping Use: Never Used Second Hand Smoke Exposure: No service: No Current occupational status: employed Current occupational exposures/hazards: No Cognitive needs: No Hearing needs: No Vision needs: Yes Female Reproductive History Menstrual Age of Menarche: 9 Questionnaire PHQ-9 Over the last 2 weeks, how often have you been bothered by any of the following problems? 1. Little interest or pleasure in doing things: not at all 2. Feeling down, depressed, or hopeless: not at all 3. Trouble falling or staying asleep, or sleeping too much: not at all 4. Feeling tired or having little energy: not at all 5. Poor appetite or overeating: not at all 6. Feeling bad about yourself - or that you are a failure or have let yourself or your family down: not at all 7. Trouble concentrating on things, such as reading the newspaper or watching television: not at all 8. Moving or speaking so slowly that other people could have noticed. Or the opposite - being so fidgety or restless that you have been moving around a lot more than usual: not at all 9. Thoughts that you would be better off or of hurting yourself in some way: not at all Total score: 0 Depression Screening Interpretation: Negative Depression Screening Done: Yes 50074 - PHQ-9 Billing: Yes Source: Developed by Drs. Diego Shea, Celeste Avendano, You Austin and colleagues, with an educational hilda from [employer]. Thrive Questionnaire Date Thrive assessed: 03/11/24 I am a: Patient What is your living situation today?: I have a steady place to live Within the past 12 months, did the food you bought not last and you didn't have the money to get more?: Never true Within the past 12 months, did you worry whether your food would run out before you got money to buy more?: Never true Do you have trouble paying for medicines?: No Do you have trouble getting transportation to medical appointments?: No Do you have trouble paying your heating and electricity bill?: No Do you have trouble taking care of your child, family member or friend?: No Do you have trouble with day-to-day activities such as bathing, preparing meals, shopping, managing finances, etc.?: No Are you currently unemployed and looking for a job?: No Are you interested in more education?: No Please select the resources that you would like help with: None Currently or been in a relationship where the following occur: No concerns reported THRIVE Score: 0 AUDIT C Alcohol Use Questionnaire (AUDIT-C) 1. How often do you have a drink containing alcohol?: Never Total Score: 0 Score Reviewed/Action Taken: No ARJUN-7 AMB Questionnaire ARJUN-7 Date ARJUN - 7 assessed: 03/11/24 Feeling nervous, anxious, or on edge: 0 = Not at all Not being able to stop or control worryin = Not at all Worrying too much about different things: 0 = Not at all Trouble relaxin = Not at all Being so restless that it is hard to sit still: 0 = Not at all Becoming easily annoyed or irritable: 0 = Not at all Feeling afraid as if something awful might happen: 0 = Not at all Total ARJUN-7 score (0-4 normal; 5-9 mild; 10-14 moderate; 15-21 severe): 0 Source: Developed by Drs. Diego Shea, Celeste Avendano, You Austin and colleagues, with an educational hilda from [employer]. ARJUN-7 Assessment Billing ARJUN-7 Assessment Tool: ARJUN-7 Assessment 37698 Review of Systems Const All systems reviewed & are unremarkable except as noted in HPI and below Card Denies chest pain at rest, Denies chest pain with activity, Denies edema, Denies irregular heart rhythm, Denies claudication, Denies dyspnea, Denies dyspnea on exertion, Denies orthopnea, Denies paroxysmal nocturnal dyspnea and Denies slow heart rate Resp Denies cough, Denies dyspnea and Denies dyspnea on exertion GI Reports abdominal pain, Denies change in bowel habits, Denies excessive flatus, Denies nausea and Denies vomiting Denies urinary incontinence, Denies urinary hesitancy and Denies urinary urgency Musc Denies abnormal gait, Denies atrophy, Denies deformity, Reports arthralgias and Denies limited range of motion Skin/Breast Denies bleeding lesions, Denies changing lesions and Denies rash Neuro Denies abnormal gait and Denies lack of coordination Physical exam (Primary Care) Vital Signs: Last Vital Signs BP 126/82 03/11/24 07:42 BMI result Body Mass Index 29.9 BMI Assessment/Plan discussion: High BMI High, discussed plan: lifestyle, weight reduction, dietary and physical activity Tobacco/Smoking Status: Tobacco use Status Tobacco use date assessed 03/11/24 03/11/24 07:46 Patient Tobacco Use Status Never used Tobacco 03/11/24 07:46 e-Cigarette/Vaping Use Never Used 03/11/24 07:46 PHQ-9: PHQ-9 Score PHQ-9: Total score 0 03/11/24 08:12 Depression Screening Interpretation: Negative Thrive Assessment: Date of Thrive Assessment Date Thrive assessed 03/11/24 03/11/24 07:46 Currently or been in a relationship where the following occur: No concerns reported Const General: cooperative Limitations: no limitations HENID Head: Yes normal to inspection, Yes normocephalic and Yes atraumatic Ears: external ears normal Eyes Other: snellen chart 20/20 both eyes General: appearance normal, both eyes and all related structures Visual Velásquez: normal visual velásquez by confrontation Alignment and Position: alignment normal Eyelids: Yes eyelids normal Conjunctivae: conjunctivae normal Sclerae: sclerae normal EOM: EOMs intact bilaterally Neck Neck: Yes normal visual inspection and Yes supple Resp Effort & Inspection: normal respiratory effort Auscultation: clear to auscultation bilaterally Cardio Jugular venous distension: no JVD Rate: regular rate Rhythm: regular rhythm Heart sounds: S1 normal heart sound present and S2 normal heart sound present GI Inspection: Yes normal to inspection Palpation (GI): Soft to palpation and nontender Auscultation: normal bowel sounds Skin General skin exam: no rashes or lesions noted Neuro General: no focal motor deficits Extrem General: Yes full ROM Psych Appearance: grossly normal Office Procedures Flu Questionnaire Does the patient have a severe egg allergy?: No Does the patient have severe life threatening allergies?: No Does the patient have a fever or illness today?: No Has the patient ever had Guillain-Abiquiu Syndrome?: No Has the patient ever had any past reaction to a flu shot?: No Immunizations Fluarix Triv [id number] (PF) 45 mcg (15 mcg x 3)/0.5 mL IM syringe Performing Provider: Myrtle Graff MD [facility] Administered by: ZOEY Carver on 03/11/24 08:10 Dose Route Admin Location Dispensed Lot Number Expiration Date [facility] Com[employer] 0.5 mL IM Right Deltoid 0.5 mL [id number] 11/22/24 [id number] [employer] VIS Given Date VIS Provided VIS Publication Date 03/11/24 Single Vaccine 20 Eligibility Eligibility Date Funding Source Not [facility] Eligible 03/11/24 Private Coding Level of Care Code Est Pt Level 3 (22619) Est Pt Prev Care 40-64y(89289) Diagnoses Physical exam Z00.00 Seropositive rheumatoid arthritis M05.9 Generalized abdominal pain R10.84 Abdominal location: generalized Additional Codes ARJUN-7 Assessment Billing - ARJUN-7 Assessment Tool: ARJUN-7 Assessment 83999 ([id number]) Time Spent (min) 40 Assessment & Plan Assessment & Plan (1) Physical exam: Code(s): Z00.00 - Encounter for general adult medical examination without abnormal findings Category: Medical Plan: Repeat in a year. (2) Seropositive rheumatoid arthritis: Comment: Humira: May 2020- August 2020- continued pain Methotrexate: January 2018-May 2020-GI upset Rinvoq- August 2020- present Code(s): M05.9 - Rheumatoid arthritis with rheumatoid factor, unspecified Category: Medical Plan: Follow-up with rheumatology. (3) Abdominal pain: Code(s): R10.9 - Unspecified abdominal pain Category: Medical Qualifiers: Abdominal location: generalized Qualified Code(s): R10.84 - Generalized abdominal pain Plan: Start Carafate as needed. Orders: Orders Influenza [id number] Immunization Today Z23 - Encounter for immunization Lipid Panel Today E78.5 - Hyperlipidemia, unspecified Referrals Open Access Screening Colonoscopy Referral Z12.12 - Encounter for screening for malignant neoplasm of rectum Medications: New sucralfate 1 g PO BID 60 tabs 0RF 30 days
[2024-03-11 07:42] VITALS: BP 126/82; BMI 29.9
== END 2024-03-11 08:10 | disposition home or self-care (01) ==
PROVIDERS: PCP Internal Medicine; Visit Provider Internal Medicine
DX: Z00.00 Encounter for general adult medical examination without abnormal findings (principal); M05.9 Rheumatoid arthritis with rheumatoid factor, unspecified; R10.84 Generalized abdominal pain

== ENCOUNTER → 2024-03-11 07:29 | Outpatient (BNVA) | payer OTHER, SELFPAY | PROVIDERS: PCP Internal Medicine; Visit Provider Internal Medicine | DX: Z00.01 Encounter for general adult medical examination with abnormal findings (principal); R10.84 Generalized abdominal pain; M05.9 Rheumatoid arthritis with rheumatoid factor, unspecified; M17.11 Unilateral primary osteoarthritis, right knee; Z79.60 Long term (current) use of unspecified immunomodulators and immunosuppressants; Z71.85 Encounter for immunization safety counseling; Z23 Encounter for immunization | CPT/HCPCS: 90471; 90656; 96127 ==

== ENCOUNTER 2024-03-11 10:48 | Outpatient (AMB) | payer OTHER, SELFPAY ==
--- NOTE | 2024-03-11 10:51 | A.OFFVIS_ITS ---
Vital Signs 03/11/24 10:54 Height 5 ft 1 in Weight 159 lb 2.78 oz BMI 30.1 BP 115/70 Blood Pressure Location Lt brachial Position Sitting Pulse 81 Pulse Source Pulse Oximeter Pulse Oximetry (%) 98 Oxygen Delivery Method Room Air Intake Visit Reasons: RA/lvm Intake Note: Patient presents for RA. Allergies No Known Allergies Allergy (Verified 03/11/24 10:53) Medication List - Last Reconciled 03/11/24 by Beryl Davis MD ibuprofen 600 mg PO Q8H PRN 90 days omeprazole 20 mg PO DAILY 90 days Rinvoq ER (upadacitinib) 15 mg PO DAILY NS sucralfate 1 g PO BID 30 days HPI Comments Details: This is a 58-year-old female with seropositive RA who presents for follow-up. She remains on Rinvoq 15 mg p.o. daily. Right knee injection done last week was quite helpful. Offers no complaints today PFSH Medical History Vitamin D deficiency Class 1 obesity with body mass index (BMI) of 34.0 to 34.9 in adult GERD (gastroesophageal reflux disease) Mixed hyperlipidemia Hypercholesterolemia Peptic ulcer disease Surgical History History of gastric surgery History of tubal ligation Family History Mother Diabetes HTN (hypertension) CVD (cardiovascular disease) Father High cholesterol Stroke Social History Household Members: Spouse Housing: House Alcohol intake: never Patient Tobacco Use Status: Never used Tobacco e-Cigarette/Vaping Use: Never Used Second Hand Smoke Exposure: No service: No Current occupational status: employed Current occupational exposures/hazards: No Cognitive needs: No Hearing needs: No Vision needs: Yes Female Reproductive History Menstrual Age of Menarche: 9 Review of Systems Musc Denies arthralgias, Denies joint swelling and Denies stiffness Physical Exam Vital Signs: Last Vital Signs Pulse 81 03/11/24 10:54 BP 115/70 03/11/24 10:54 Pulse Ox 98 03/11/24 10:54 Oxygen Delivery Method Room Air 03/11/24 10:54 BMI result Body Mass Index 30.1 Const General: cooperative, healthy appearing and comfortable Nutritional Appearance: obese Orientation/consciousness: patient oriented x3 Limitations: no limitations HEENT Head: Yes normocephalic and Yes atraumatic Mouth: moist mucous membranes Resp Effort & Inspection: normal respiratory effort and able to speak in complete sentences Skin General skin exam: no rashes or lesions noted Neuro General: patient oriented x3 Extrem Other: No active synovitis today both hands and wrists Minimal right knee warmth Right knee crepitus but no pain with full flexion and extension Results Reviewed Results Reviewed: Reviewed bilateral knee x-rays done 03/09/2024. No official report yet Shows bilateral knee osteoarthritis, more in the right knee particularly medially Assessment & Plan Assessment & Plan (1) Seropositive rheumatoid arthritis: Comment: Humira: May 2020- August 2020- continued pain Methotrexate: January 2018-May 2020-GI upset Rinvoq- August 2020- present Code(s): M05.9 - Rheumatoid arthritis with rheumatoid factor, unspecified Category: Medical Plan: This is a 58-year-old female with seropositive RA who presents for follow-up. On Rinvoq 15 mg p.o. daily. Patient is doing quite well with no active synovitis. Inflammatory markers normal. No recent infections Continue Rinvoq 15 mg p.o. daily labs before next visit in 4 months (2) Long-term use of immunosuppressant medication: Code(s): Z79.60 - director long term care (current) use of unspecified immunomodulators and immunosuppressants Category: Medical Plan: Patient is aware of potential adverse events of RUFUS inhibitors such as mildly increased risk of cardiovascular events, thromboembolic events, malignancy as well as increased risk of infections. (3) Osteoarthritis of right knee: Code(s): M17.11 - Unilateral primary osteoarthritis, right knee Category: Medical Qualifiers: Osteoarthritis type: primary Qualified Code(s): M17.11 - Unilateral primary osteoarthritis, right knee Plan: Injected in clinic last week with significant improvement. Injections can be repeated as needed (4) Immunization counseling: Code(s): Z71.85 - Encounter for immunization safety counseling Category: Medical Plan: Received flu vaccine recently and PCPs office. Not interested in COVID booster Plan I spent 26 minutes reviewing patient's chart, evaluating patient, ordering diagnostic workup, counseling patient and documenting in the chart Coding Level of Care Code Est Pt Level 4 (97784) Complex EM visit Add On G2211 Diagnoses Seropositive rheumatoid arthritis M05.9 Long-term use of immunosuppressant medication Z79.60 Primary osteoarthritis of right knee M17.11 Osteoarthritis type: primary Immunization counseling Z71.85
[2024-03-11 10:54] VITALS: BP 115/70; PULSE 81; O2SAT 98; BMI 30.1
== END 2024-03-11 11:07 | disposition home or self-care (01) ==
PROVIDERS: PCP Internal Medicine; Visit Provider Student in an Organized Health Care Education/Training Program
DX: M05.79 Rheumatoid arthritis with rheumatoid factor of multiple sites without organ or systems involvement (principal); Z79.60 Long term (current) use of unspecified immunomodulators and immunosuppressants; M17.11 Unilateral primary osteoarthritis, right knee; Z71.85 Encounter for immunization safety counseling
CPT/HCPCS: 99214

== ENCOUNTER 2024-06-21 09:57 | Outpatient (AMB) | payer OTHER, SELFPAY ==
--- NOTE | 2024-06-21 09:59 | MHC.OFFVIS ---
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 RA+ . Patient reports onging pain for quite some time. Right knee injected in the rheumatology office on 03/05/24. Patient reports that the injection did not help. Her pain is felt all the time, worse with daily activity. No physical therapy and no bracing. She takes Ibuprofen. She has also take prednisone in the past that has been helpful. 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 RA+ . Patient reports onging pain for quite some time. Right knee injected in the rheumatology office on 03/05/24. Patient reports that the injection did not help. Her pain is felt all the time, worse with daily activity. No physical therapy and no bracing. She takes Ibuprofen. She has also take prednisone in the past that has been helpful. Injections, prednisone, and Ibuprofen were helpful previously but have stopped working. Her pain is medial side right knee. PENDING SALE TO [facility] Medical History Vitamin D deficiency Class 1 obesity with body mass index (BMI) of 34.0 to 34.9 in adult GERD (gastroesophageal reflux disease) Mixed hyperlipidemia Hypercholesterolemia Peptic ulcer disease Surgical History History of gastric surgery History of tubal ligation Family History Mother Diabetes HTN (hypertension) CVD (cardiovascular disease) Father High cholesterol Stroke Social History Household Members: Spouse Housing: House Alcohol intake: never Patient Tobacco Use Status: Never used Tobacco e-Cigarette/Vaping Use: Never Used Second Hand Smoke Exposure: No service: No Current occupational status: employed Current occupational exposures/hazards: No Cognitive needs: No Hearing needs: No Vision needs: Yes Female Reproductive History Menstrual Age of Menarche: 9 Physical Exam Extrem Other: On exam she has trace effusion and tenderness to palpation medial compartment right knee. Full range of motion. Subjective discomfort with palpation along the iliotibial band. Office Procedures Joint Inj/Aspir; Non-Pain Clin Joint Injection/Drain Details: Injected 1 mL of Decadron and 3 mL 1% lidocaine and 3 mL of 0.25% Marcaine. Site was prepped using aseptic technique. Patient tolerated the procedure well. Shoulders, Hips, Knees, Knee Large Joint Injection : Right Knee Coding Procedure code (CPT) selection complete Results Reviewed Results Reviewed: I personally reviewed relevant radiographs. Moderate to severe right knee osteoarthritis with varus alignment and tibial subluxation laterally. Assessment & Plan Assessment & Plan (1) Osteoarthritis of right knee: Code(s): M17.11 - Unilateral primary osteoarthritis, right knee Category: Medical Qualifiers: Osteoarthritis type: primary Qualified Code(s): M17.11 - Unilateral primary osteoarthritis, right knee Plan: 59-year-old woman with rheumatoid arthritis who has right knee osteoarthritis. Last steroid injection proximally 4 months ago was not helpful. I injected her knee again today and recommend physical therapy for stretching of the iliotibial band. She will do this on her own. If her pain does not improve she will contact me. Coding Level of Care Code New Pt Level 3 (51766) Diagnoses Primary osteoarthritis of right knee M17.11 Osteoarthritis type: primary CPT Codes Shoulders, Hips, Knees, - Knee Large Joint Injection : Right Knee ([id number])
== END 2024-06-21 10:43 | disposition home or self-care (01) ==
PROVIDERS: PCP Internal Medicine; Visit Provider Orthopaedic Surgery
DX: M17.11 Unilateral primary osteoarthritis, right knee (principal)
CPT/HCPCS: 20610; 99203

== ENCOUNTER → 2024-06-21 09:57 | Outpatient (BNVA) | payer OTHER, SELFPAY | PROVIDERS: PCP Internal Medicine; Visit Provider Orthopaedic Surgery | DX: M17.11 Unilateral primary osteoarthritis, right knee (principal) | CPT/HCPCS: 20610; J0665; J1100; J2003 ==

== ENCOUNTER 2024-10-20 11:18 | Outpatient (REF) | payer OTHER, SELFPAY ==
[2024-10-20 12:11] LABS: Basophils Percent Auto 0.4 % (0-2); Eosinophils Absolute Auto 0.1 X10*3/uL (0.0-0.4); Eosinophils Percent Auto 1.2 % (0-4); Hematocrit 36.9 % (37.0-47.0); Hemoglobin 12.2 g/dl (12.0-16.0); Imm Gran Abs Auto 0.02 X10*3/uL (0.00-0.03); Imm Gran Pct Auto 0.4 % (0.0-0.4); Lymphocytes Absolute Auto 1.8 X10*3/uL (1.2-4.9); Lymphocytes Percent Auto 34.9 % (20-40); MANUAL DIFF FLAG SCAN; Mean Corpuscular HGB Conc 33.1 g/dl (31.0-35.0); Mean Corpuscular Hemoglobin 30.8 pg (27.0-33.0); Mean Corpuscular Volume 93.2 fL (80.0-98.0); Monocytes Absolute Auto 0.4 X10*3/uL (0.1-1.2); Monocytes Percent Auto 8.7 % (2-11); Neutrophils Absolute Auto 2.8 x10*3/uL (2.0-8.3); Neutrophils Percent Auto 54.4 % (45-73); PLT CLUMP 1; Red Blood Count 3.96 X10*6/uL (4.20-5.50); Red Cell Distribution Width 13.3 % (11.0-16.0); SCAN SMEAR FLAG 1
[2024-10-20 12:12] LABS: White Blood Count 5.1 X10*3/uL (4.8-10.8)
[2024-10-20 12:45] LABS: Alanine Aminotransferase 28 U/L (0-31); Albumin Level 4.3 g/dL (3.5-5.0); Alkaline Phosphatase 63 U/L (39-117); Anion Gap 11 (12-20); Aspartate Amino Transferase 33 U/L (5-31); Bilirubin Total 0.4 mg/dL (0.0-1.0); Blood Urea Nitrogen 20 mg/dL (9-16); C Reactive Protein < 0.10 mg/dL (< or = 0.50); Calcium 9.2 mg/dL (8.4-10.2); Carbon Dioxide 26 mmol/L (22-29); Chloride 108 mmol/L (96-108); Cholesterol 296 mg/dL (<200); Estimated Glomerular Filt Rate > 60; Glucose Random 79 mg/dL (60-115); HDL Cholesterol 101 mg/dL (>40); LDL Cholesterol Calculated 171 mg/dL (<100); Potassium 4.3 mmol/L (3.3-5.1); Sodium 141 mmol/L (135-145); Total Protein 7.4 g/dL (6.5-8.0); Triglycerides 120 mg/dL (<150)
[2024-10-20 12:56] LABS: Platelet Count 241 X10*3/uL (160-400)
[2024-10-20 13:06] LABS: HBS Num1 0.16 mIU/mL (0-7.99); HBc Num1 0.05 S/CO (0.00-0.79); HBsAGNum1 0.24 S/CO (0.00-0.99); Hepatitis A Antibody IgM 0.12 Index (0-0.79); Hepatitis B Core Antibody Nonreactive (Nonreactive); Hepatitis B Surface Antigen Negative (Negative); ~HepC Num1 0.09 S/CO (0.00-0.79); ~Hepatitis A Antibody IgM Nonreactive (Nonreactive); ~Hepatitis B Surface Antibody NONREACTIVE (Nonreactive); ~Hepatitis C Antibody Nonreactive (Nonreactive)
[2024-10-20 13:13] LABS: Erythrocyte Sedimentation Rate 16 MM/HR (0-20)
[2024-10-20 14:48] LABS: SLIDE REVIEW VERIFIED
[2024-10-23 15:28] LABS: TS Negative Control Passed; TS Panel A 0; TS Panel B 0; TS Positive Control Passed; TSpotTB Negative (Negative)
== END 2024-10-20 11:19 | disposition home or self-care (01) ==
LOC: HO.LAB 11:18
PROVIDERS: PCP Internal Medicine; Visit Provider Student in an Organized Health Care Education/Training Program
DX: M05.9 Rheumatoid arthritis with rheumatoid factor, unspecified (principal); E78.5 Hyperlipidemia, unspecified
CPT/HCPCS: 36415; 80053; 80061; 85025; 85652; 86140; 86481; 86704; 86706; 86709; 86803; 87340

== ENCOUNTER 2024-10-22 15:22 | Outpatient (AMB) | payer OTHER, SELFPAY ==
[2024-10-22 15:28] VITALS: BP 118/68; PULSE 77; O2SAT 98; BMI 32.1
--- NOTE | 2024-10-22 15:28 | A.OFFVIS_ITS ---
Vital Signs 10/22/24 15:28 Height 5 ft 1 in Weight 169 lb 12.095 oz BMI 32.1 BP 118/68 Blood Pressure Location Lt brachial Position Sitting Pulse 77 Pulse Source Pulse Oximeter Pulse Oximetry (%) 98 Oxygen Delivery Method Room Air Intake Visit Reasons: RA Intake Note: Patient presents for follow up on [employer] and lab review. Patient complains of right knee pain for several months. Allergies No Known Allergies Allergy (Verified 10/22/24 15:30) Medication List - Last Reconciled 10/22/24 by Gina Corley MD ibuprofen 600 mg PO Q8H PRN 90 days omeprazole 20 mg PO DAILY 90 days Rinvoq ER (upadacitinib) 15 mg PO DAILY NS HPI Comments Details: Patient is a 59-year-old female with GERD, hyperlipidemia, polyarticular osteoarthritis, and seropositive rheumatoid arthritis here today for follow up Interval History: Patient last seen 03/11/[address] Davis. At that time she was following up for her seropositive rheumatoid arthritis on Rinvoq 15 mg daily. She had previously had a right knee steroid injection done a week prior to this appointment and it was helpful. Had no complaints at that time. Today, She is doing well apart from her right knee. Saw ortho 05/2024 and received another steroid injection at that time which did not improve her pain. Also experiences gelling phenomenon when she is sitting for a prolonged period then needs to stand up Rheumatologic History: Seropositive rheumatoid arthritis Humira: May 2020- August 2020- continued pain Methotrexate: January 2018-May 2020-GI upset Rinvoq- August 2020- present Current Rheumatology Medication(s): Rinvoq 15mg daily [facility] Medical History Vitamin D deficiency Class 1 obesity with body mass index (BMI) of 34.0 to 34.9 in adult GERD (gastroesophageal reflux disease) Mixed hyperlipidemia Hypercholesterolemia Peptic ulcer disease Surgical History History of gastric surgery History of tubal ligation Family History Mother Diabetes HTN (hypertension) CVD (cardiovascular disease) Father High cholesterol Stroke Social History Household Members: Spouse Housing: House Alcohol intake: never Patient Tobacco Use Status: Never used Tobacco e-Cigarette/Vaping Use: Never Used Second Hand Smoke Exposure: No service: No Current occupational status: employed Current occupational exposures/hazards: No Cognitive needs: No Hearing needs: No Vision needs: Yes Female Reproductive History Menstrual Age of Menarche: 9 Review of Systems Const Details: Review of Systems Constitutional: Denies fever, chills, weight loss ENT: Denies vision changes, eye pain or eye redness, dental caries, dry mouth GI: Denies nausea, vomiting, diarrhea, abdominal pain, change in BM Pulm: Denies SOB, XAVIER, hemoptysis, wheezing Cards: Denies chest pain, palpitations Skin: Denies Raynaud's, rash, nail changes, photosensitivity, [employer]: Denies headaches, weakness, paresthesias, recurrent falls MSK: as per HPI All other systems reviewed and are unremarkable except noted above Physical Exam Vital Signs: Last Vital Signs Pulse 77 10/22/24 15:28 BP 118/68 10/22/24 15:28 Pulse Ox 98 10/22/24 15:28 Oxygen Delivery Method Room Air 10/22/24 15:28 BMI result Body Mass Index 32.1 Vital signs reviewed Physical Examination CONSTITUITIONAL Patient alert and cooperative. Well appearing and in no apparent painful distress HEENT Conjunctiva and sclera clear. ?Pupils equal round and reactive to light. ?No lymphadenopathy. ? CHEST/RESPIRATORY SYSTEM Normal respiratory effort and able to speak in complete sentences. ?Clear to auscultation bilaterally. ?No crackles, rales, rhonchi, wheezes heard. CARDIAC SYSTEM Regular rate and rhythm. ?S1 and S2 heard no murmurs. ?Radial pulses intact bilaterally MSK Hands: ?Able to make a fist. No synovitis noted to the MCPs, PIPs or DIPs. ?No tenderness to palpation of these joints. No deformities noted. ? Wrists: ?Full range of motion at the wrists without pain. ?No tenderness to palpation or synovitis noted to the wrists. Elbows: Full range of motion without pain. No tenderness, weakness, swelling, increased warmth or erythema. Shoulders: Full range of active range of motion without pain. No tenderness, weakness, swelling, increased warmth or erythema. Knees: ?Full range of motion. ?No tenderness, swelling, increased warmth or erythema.?No effusion. Bilateral crepitations felt Ankles: Full range of motion. ?No tenderness, swelling, increased warmth or erythema.? Feet: ?Negative squeeze test. ?No tenderness to palpation or swelling of the MTPs. Tender points:?No tenderness to palpation of the bilateral trapezius, sup raspinatus, greater trochanters, anterior costochondral junctions, bilateral gluteal areas, bilateral suboccipital muscle insertions SKIN Skin intact without rashes. Results Reviewed Results Reviewed: Laboratory Tests 10/20/24 11:36 WBC 5.1 RBC 3.96 L Hgb 12.2 Hct 36.9 L Plt Count 241 ESR 16 Sodium 141 Potassium 4.3 Chloride 108 Carbon Dioxide 26 BUN 20 H Creatinine 0.79 AST 33 H ALT 28 Alkaline Phosphatase 63 C-Reactive Protein < 0.10 Infectious lab 12/10/23 10/20/24 08:50 11:36 Hepatitis A IgM Ab Nonreactive Hep Bs Antigen Negative Hep Bs Antibody NONREACTIVE Hep B Core Total Ab Nonreactive Hepatitis C Ab (EIA) Nonreactive TB Test (T-Spot) Com Negative Pending Assessment & Plan Assessment & Plan (1) Seropositive rheumatoid arthritis: Comment: Humira: May 2020- August 2020- continued pain Methotrexate: January 2018-May 2020-GI upset Rinvoq- August 2020- present Code(s): M05.9 - Rheumatoid arthritis with rheumatoid factor, unspecified Category: Medical Plan: #Seropositive RA Patient is a 59-year-old female with seropositive rheumatoid arthritis here today for follow up. Currently in remission on Rinvoq monotherapy Plan - Rinvoq 15mg daily - RTC 6 months - Labs before visit: CBC, CMP, ESR, CRP (2) Polyarticular osteoarthritis: Code(s): M15.9 - Polyosteoarthritis, unspecified Plan: #Polyarticular OA Patient with polyarticular OA. Right now her main complaint is right knee pain. Steroid injections no longer beneficial. 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 Plan: #Long-term Use of RUFUS inhibitor : Rinvoq Discussed with patient the benefits and risks of RUFUS inhibitors for the management of the rheumatic condition Benefits include reduce pain, maintenance of remission and reduction of flares Risks include thromboembolic events, skin cancer and nonmelanoma skin cancers, other forms of cancer, cardiovascular alcohol and mortality Advise patient that they are to hold the medication and for up to 1 week after a febrile illness or an open skin wound Plan I spent 20 minutes reviewing the record and labs, taking a history, examining the patient, discussing the treatment plan, ordering diagnostic work up and documenting in the medical record Orders: Orders Comprehensive Met. Panel 6 Months M05.9 - Rheumatoid arthritis with rheumatoid factor, unspecified C Reactive Protein 6 Months M05.9 - Rheumatoid arthritis with rheumatoid factor, unspecified Complete Blood Count Auto Diff 6 Months M05.9 - Rheumatoid arthritis with rheumatoid factor, unspecified Erythrocyte Sedimentation Rate 6 Months M05.9 - Rheumatoid arthritis with rheumatoid factor, unspecified Coding Level of Care Code Est Pt Level 3 (66838) Complex EM visit Add On G2211 Diagnoses Seropositive rheumatoid arthritis M05.9 Polyarticular osteoarthritis M15.9 Long-term current use of Janus kinase inhibitor Z79.622
== END 2024-10-22 16:01 | disposition home or self-care (01) ==
LOC: HO.RHE 15:23
PROVIDERS: PCP Internal Medicine; Visit Provider Student in an Organized Health Care Education/Training Program
DX: M05.79 Rheumatoid arthritis with rheumatoid factor of multiple sites without organ or systems involvement (principal); M15.9 Polyosteoarthritis, unspecified; Z79.622 Long term (current) use of Janus kinase inhibitor
CPT/HCPCS: 99213

== ENCOUNTER → 2024-10-22 15:22 | Outpatient (BNVA) | payer OTHER, SELFPAY | PROVIDERS: PCP Internal Medicine; Visit Provider Student in an Organized Health Care Education/Training Program ==

== ENCOUNTER 2024-12-31 07:14 | Outpatient (AMB) | payer OTHER, SELFPAY ==
--- NOTE | 2024-12-31 07:31 | A.OFFVIS_ITS ---
Vital Signs 12/31/24 07:38 Height 5 ft 1 in Weight 159 lb 2.78 oz BMI 30.1 BP 130/82 Blood Pressure Location Rt brachial Position Sitting Pulse 82 Pulse Source Pulse Oximeter Pulse Oximetry (%) 98 Oxygen Delivery Method Room Air Intake Visit Reasons: knee pain/Euflexxa inj #1 Intake Note: Patient presents for knee pain and Euflexxa injection #1 follow up. Allergies No Known Allergies Allergy (Verified 12/31/24 07:37) Medication List - Last Reconciled 12/31/24 by Gina Corley MD ibuprofen 600 mg PO Q8H PRN 90 days omeprazole 20 mg PO DAILY 90 days Rinvoq ER (upadacitinib) 15 mg PO DAILY NS HPI Comments Details: Patient is a 59-year-old female with GERD, hyperlipidemia, polyarticular osteoarthritis, and seropositive rheumatoid arthritis here today for follow up Interval History: Patient last seen 10/22/24 with me. - On Rinvoq 15 mg daily - Doing well except for right knee pain 2/2 OA - Steroid injections no longer beneficial - Interested in gel injections - No synovitis, so no changes made with respect to her medications Today, - On Rinvoq 15mg daily - Here for 1st injection of Euflexxa for right knee Rheumatologic History: Seropositive rheumatoid arthritis Humira: May 2020- August 2020- continued pain Methotrexate: January 2018-May 2020-GI upset Rinvoq- August 2020- present Current Rheumatology Medication(s): Rinvoq 15mg daily [facility] Medical History Vitamin D deficiency Class 1 obesity with body mass index (BMI) of 34.0 to 34.9 in adult GERD (gastroesophageal reflux disease) Mixed hyperlipidemia Hypercholesterolemia Peptic ulcer disease Surgical History History of gastric surgery History of tubal ligation Family History Mother Diabetes HTN (hypertension) CVD (cardiovascular disease) Father High cholesterol Stroke Social History Household Members: Spouse Housing: House Alcohol intake: never Patient Tobacco Use Status: Never used Tobacco e-Cigarette/Vaping Use: Never Used Second Hand Smoke Exposure: No service: No Current occupational status: employed Current occupational exposures/hazards: No Cognitive needs: No Hearing needs: No Vision needs: Yes Female Reproductive History Menstrual Age of Menarche: 9 Review of Systems Const All systems reviewed & are unremarkable except as noted in HPI and below Physical Exam Exam Exam: Vital signs reviewed Physical Examination CONSTITUITIONAL Patient alert and cooperative. Well appearing and in no apparent painful distress HEENT Conjunctiva and sclera clear. No lymphadenopathy. MSK Knees * Right knee: Slight valgus deformity. TTP of the joint line with crepitations felt Vital Signs: BMI result Body Mass Index 30.1 Office Procedures AMB Joint Injection/Aspiration Joint Injection/Aspiration Details: Procedure was explained to the patient and informed consent was obtained. ? Risks associated with the procedure were discussed with the patient including but not limited to bleeding, infection, drug reactions and reactions to the topical anesthetic. Patient made aware of signs to look out for infectious complications. The area of interest was identified and confirmed with patient. ?This was subsequently cleaned with chlorhexidine x 2. ? The area was then anesthetized using ethyl chloride spray. 2cc Euflexxa was injected without issue. ?Minimal to no bleeding. ?Patient tolerated procedure. Primary Site: right knee Prep: site was prepped using aseptic technique and ethochloride spray was applied Injected: other (2cc Euflexxa) Approach Used: anterior Procedure: The patient tolerated the procedure well Coding 72402 - Large joint Procedure code (CPT) selection complete Office Meds Euflexxa 10 mg/mL (mw 2.4-3.6 million) intra-articular syringe Performing Provider: Gina Colrey MD Performing Location: [facility] [place] Rheumatology-[facility] Administered by: Gina Corley MD on 12/31/24 08:00 Dose Route Admin Location Dispensed Lot Number Expiration Date [facility] 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 Right knee 2 mL [id number] 09/13/25 [address]-5 [employer] Total Dispensed Waste 2 mL 0 % Results Reviewed Results Reviewed: Laboratory Tests 10/20/24 11:36 WBC 5.1 RBC 3.96 L Hgb 12.2 Hct 36.9 L Plt Count 241 ESR 16 Sodium 141 Potassium 4.3 Chloride 108 Carbon Dioxide 26 BUN 20 H Creatinine 0.79 AST 33 H ALT 28 Alkaline Phosphatase 63 C-Reactive Protein < 0.10 Infectious lab 12/10/23 10/20/24 08:50 11:36 Hepatitis A IgM Ab Nonreactive Hep Bs Antigen Negative Hep Bs Antibody NONREACTIVE Hep B Core Total Ab Nonreactive Hepatitis C Ab (EIA) Nonreactive TB Test (T-Spot) Com Negative Pending XR Right Knee 02/2024 FINDINGS: Limited evaluation as above. There are marginal osteophytes with nonuniform joint space narrowing and patellofemoral compartment indicative of mild to moderate osteoarthritis unchanged. No effusion. No additional abnormalities. No marginal erosions IMPRESSION: Mild to moderate osteoarthritis of the right patellofemoral joint Assessment & Plan Assessment & Plan (1) Osteoarthritis of right knee: Code(s): M17.11 - Unilateral primary osteoarthritis, right knee Category: Medical Qualifiers: Osteoarthritis type: primary Qualified Code(s): M17.11 - Unilateral primary osteoarthritis, right knee Plan: #Right Knee OA Patient is a 59 year old female with RA and polyarticular OA here today for her 1st Euflexxa injection Previously tried steroid injections but these have lost efficacy Plan - s/p Euflexxa 1st dose - RTC 1 week Orders: Orders AMB Joint Injection/Aspiration Today M17.11 - Unilateral primary osteoarthritis, right knee Coding Level of Care Code Est Pt Level 3 (80586) Diagnoses Primary osteoarthritis of right knee M17.11 Osteoarthritis type: primary CPT Codes Coding - Large joint: 21729 - Large joint ([id number])
[2024-12-31 07:38] VITALS: BP 130/82; PULSE 82; O2SAT 98; BMI 30.1
== END 2024-12-31 07:58 | disposition home or self-care (01) ==
LOC: HO.RHES 07:15
PROVIDERS: PCP Internal Medicine; Visit Provider Student in an Organized Health Care Education/Training Program
DX: M17.11 Unilateral primary osteoarthritis, right knee (principal)
CPT/HCPCS: 20610; 99213

== ENCOUNTER → 2024-12-31 07:14 | Outpatient (BNVA) | payer OTHER, SELFPAY | PROVIDERS: PCP Internal Medicine; Visit Provider Student in an Organized Health Care Education/Training Program | DX: M17.11 Unilateral primary osteoarthritis, right knee (principal) | CPT/HCPCS: 20610; J7323 ==

== ENCOUNTER 2025-01-07 07:23 | Outpatient (AMB) | payer OTHER, SELFPAY ==
--- NOTE | 2025-01-07 07:33 | A.OFFVIS_ITS ---
Vital Signs 01/07/25 07:39 Height 5 ft 1 in Weight 158 lb 8.198 oz BMI 29.9 BP 130/82 Blood Pressure Location Lt brachial Position Sitting Pulse 77 Pulse Source Pulse Oximeter Pulse Oximetry (%) 98 Oxygen Delivery Method Room Air Intake Visit Reasons: knee pain/euflexxa inj #2 Intake Note: Patient presents for knee pain and Euflexxa injection #2 follow up. Allergies No Known Allergies Allergy (Verified 01/07/25 07:38) HPI Comments Details: Patient is a 59-year-old female with GERD, hyperlipidemia, polyarticular osteoarthritis, and seropositive rheumatoid arthritis here today for follow up Interval History: Patient last seen 12/31/24 with me - On Rinvoq 15mg daily -Received 1st injection of Euflexxa for right knee Today, - On Rinvoq 15mg daily - Here for 2nd injection of Euflexxa for right knee Rheumatologic History: Seropositive rheumatoid arthritis Humira: May 2020- August 2020- continued pain Methotrexate: January 2018-May 2020-GI upset Rinvoq- August 2020- present Current Rheumatology Medication(s): Rinvoq 15mg daily [facility] Medical History Vitamin D deficiency Class 1 obesity with body mass index (BMI) of 34.0 to 34.9 in adult GERD (gastroesophageal reflux disease) Mixed hyperlipidemia Hypercholesterolemia Peptic ulcer disease Surgical History History of gastric surgery History of tubal ligation Family History Mother Diabetes HTN (hypertension) CVD (cardiovascular disease) Father High cholesterol Stroke Social History Household Members: Spouse Housing: House Alcohol intake: never Patient Tobacco Use Status: Never used Tobacco e-Cigarette/Vaping Use: Never Used Second Hand Smoke Exposure: No service: No Current occupational status: employed Current occupational exposures/hazards: No Cognitive needs: No Hearing needs: No Vision needs: Yes Female Reproductive History Menstrual Age of Menarche: 9 Review of Systems Const All systems reviewed & are unremarkable except as noted in HPI and below Physical Exam Exam Exam: Vital signs reviewed Physical Examination CONSTITUITIONAL Patient alert and cooperative. Well appearing and in no apparent painful distress HEENT Conjunctiva and sclera clear. No lymphadenopathy. MSK Knees * Right knee: Slight valgus deformity. TTP of the joint line with crepitations felt Vital Signs: Last Vital Signs Pulse 77 01/07/25 07:39 BP 130/82 01/07/25 07:39 Pulse Ox 98 01/07/25 07:39 Oxygen Delivery Method Room Air 01/07/25 07:39 BMI result Body Mass Index 29.9 Office Procedures AMB Joint Injection/Aspiration Joint Injection/Aspiration Details: Procedure was explained to the patient and informed consent was obtained. ? Risks associated with the procedure were discussed with the patient including but not limited to bleeding, infection, drug reactions and reactions to the topical anesthetic. Patient made aware of signs to look out for infectious complications. The area of interest was identified and confirmed with patient. ?This was subsequently cleaned with chlorhexidine x 2. ? The area was then anesthetized using ethyl chloride spray. 2cc Euflexxa was injected without issue. ?Minimal to no bleeding. ?Patient tolerated procedure. Primary Site: right knee Prep: site was prepped using aseptic technique and ethochloride spray was applied Injected: in the joint and other (2cc Euflexxa ) Approach Used: anterior Procedure: The patient tolerated the procedure well Coding 19781 - Large joint Procedure code (CPT) selection complete Office Meds Euflexxa 10 mg/mL (mw 2.4-3.6 million) intra-articular syringe Performing Provider: Gina Corley MD Performing Location: [facility] [place] Rheumatology-[facility] Administered by: Gina Corley MD on 01/07/25 07:53 Dose Route Admin Location Dispensed Lot Number Expiration Date [facility] 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 knee 2 mL [id number] 09/13/25 [address]-3 [employer] Total Dispensed Waste 2 mL 0 % Results Reviewed Results Reviewed: Laboratory Tests 10/20/24 11:36 WBC 5.1 RBC 3.96 L Hgb 12.2 Hct 36.9 L Plt Count 241 ESR 16 Sodium 141 Potassium 4.3 Chloride 108 Carbon Dioxide 26 BUN 20 H Creatinine 0.79 AST 33 H ALT 28 Alkaline Phosphatase 63 C-Reactive Protein < 0.10 Infectious lab 12/10/23 10/20/24 08:50 11:36 Hepatitis A IgM Ab Nonreactive Hep Bs Antigen Negative Hep Bs Antibody NONREACTIVE Hep B Core Total Ab Nonreactive Hepatitis C Ab (EIA) Nonreactive TB Test (T-Spot) Com Negative Pending XR Right Knee 02/2024 FINDINGS: Limited evaluation as above. There are marginal osteophytes with nonuniform joint space narrowing and patellofemoral compartment indicative of mild to moderate osteoarthritis unchanged. No effusion. No additional abnormalities. No marginal erosions IMPRESSION: Mild to moderate osteoarthritis of the right patellofemoral joint Assessment & Plan Assessment & Plan (1) Osteoarthritis of right knee: Code(s): M17.11 - Unilateral primary osteoarthritis, right knee Category: Medical Qualifiers: Osteoarthritis type: primary Qualified Code(s): M17.11 - Unilateral primary osteoarthritis, right knee Plan: #Right Knee OA Patient is a 59 year old female with RA and polyarticular OA here today for her 2nd Euflexxa injection Previously tried steroid injections but these have lost efficacy Plan - s/p Euflexxa 2nd dose - RTC 1 week Plan I spent 15 minutes reviewing the record and labs, taking a history, examining the patient, discussing the treatment plan, ordering diagnostic work up and documenting in the medical record Orders: Orders AMB Joint Injection/Aspiration Today M17.11 - Unilateral primary osteoarthritis, right knee Coding Level of Care Code Est Pt Level 2 (86776) Diagnoses Primary osteoarthritis of right knee M17.11 Osteoarthritis type: primary CPT Codes Coding - Large joint: 37858 - Large joint ([id number])
[2025-01-07 07:39] VITALS: BP 130/82; PULSE 77; O2SAT 98; BMI 29.9
== END 2025-01-07 07:51 | disposition home or self-care (01) ==
LOC: HO.RHES 07:24
PROVIDERS: PCP Internal Medicine; Visit Provider Student in an Organized Health Care Education/Training Program
DX: M17.11 Unilateral primary osteoarthritis, right knee (principal)
CPT/HCPCS: 20610; 99212

== ENCOUNTER → 2025-01-07 07:23 | Outpatient (BNVA) | payer OTHER, SELFPAY | PROVIDERS: PCP Internal Medicine; Visit Provider Student in an Organized Health Care Education/Training Program | DX: M17.11 Unilateral primary osteoarthritis, right knee (principal) | CPT/HCPCS: 20610; J7323 ==

== ENCOUNTER 2025-01-14 07:28 | Outpatient (AMB) | payer OTHER, SELFPAY ==
--- NOTE | 2025-01-14 07:33 | MHC.OFFVIS ---
Vital Signs 01/14/25 07:37 Height 5 ft 1 in Weight 158 lb 1.143 oz BMI 29.9 BP 132/80 Blood Pressure Location Lt brachial Position Sitting Pulse 84 Pulse Source Pulse Oximeter Pulse Oximetry (%) 98 Oxygen Delivery Method Room Air Intake Visit Reasons: Knee pain/ Euflexxa inj #3 Intake Note: Patient presents for knee pain and Euflexxa #3 follow up. Allergies No Known Allergies Allergy (Verified 01/14/25 07:37) HPI Comments Details: Patient is a 59-year-old female with GERD, hyperlipidemia, polyarticular osteoarthritis, and seropositive rheumatoid arthritis here today for follow up Interval History: Patient last seen 01/07/25 with me - On Rinvoq 15mg daily - Received 2nd injection of Euflexxa for right knee Today, - On Rinvoq 15mg daily - Here for 3rd injection of Euflexxa for right knee Rheumatologic History: Seropositive rheumatoid arthritis Humira: May 2020- August 2020- continued pain Methotrexate: January 2018-May 2020-GI upset Rinvoq- August 2020- present Current Rheumatology Medication(s): Rinvoq 15mg daily COUNTS INCLUDE 234 BEDS AT [facility] Medical History Vitamin D deficiency Class 1 obesity with body mass index (BMI) of 34.0 to 34.9 in adult GERD (gastroesophageal reflux disease) Mixed hyperlipidemia Hypercholesterolemia Peptic ulcer disease Surgical History History of gastric surgery History of tubal ligation Family History Mother Diabetes HTN (hypertension) CVD (cardiovascular disease) Father High cholesterol Stroke Social History Household Members: Spouse Housing: House Alcohol intake: never Patient Tobacco Use Status: Never used Tobacco e-Cigarette/Vaping Use: Never Used Second Hand Smoke Exposure: No service: No Current occupational status: employed Current occupational exposures/hazards: No Cognitive needs: No Hearing needs: No Vision needs: Yes Female Reproductive History Menstrual Age of Menarche: 9 Review of Systems Const All systems reviewed & are unremarkable except as noted in HPI and below Physical Exam Exam Exam: Vital signs reviewed Physical Examination CONSTITUITIONAL Patient alert and cooperative. Well appearing and in no apparent painful distress HEENT Conjunctiva and sclera clear. No lymphadenopathy. MSK Knees Right knee: Slight valgus deformity. TTP of the joint line with crepitations felt Vital Signs: Last Vital Signs Pulse 84 01/14/25 07:37 BP 132/80 01/14/25 07:37 Pulse Ox 98 01/14/25 07:37 Oxygen Delivery Method Room Air 01/14/25 07:37 BMI result Body Mass Index 29.9 Office Procedures AMB Joint Injection/Aspiration Joint Injection/Aspiration Details: Procedure was explained to the patient and informed consent was obtained. ? Risks associated with the procedure were discussed with the patient including but not limited to bleeding, infection, drug reactions and reactions to the topical anesthetic. Patient made aware of signs to look out for infectious complications. The area of interest was identified and confirmed with patient. ?This was subsequently cleaned with chlorhexidine x 2. ? The area was then anesthetized using ethyl chloride spray. 2cc Euflexxa was injected without issue. ?Minimal to no bleeding. ?Patient tolerated procedure. Primary Site: right knee Prep: site was prepped using aseptic technique Injected: other (2cc Euflexxa) Approach Used: anterior Procedure: The patient tolerated the procedure well Coding 09829 - Large joint Procedure code (CPT) selection complete Office Meds Euflexxa 10 mg/mL (mw 2.4-3.6 million) intra-articular syringe Performing Provider: Gina Corley MD Performing Location: [facility] Rheumatology-[facility] Administered by: Gina Corley MD on 01/14/25 07:54 Dose Route Admin Location Dispensed Lot Number Expiration Date [facility] Electric Stove [employer] 20 mg intra-articular right knee 2 mL [id number] 09/13/25 [address]-8 [employer] Total Dispensed Waste 2 mL 0 % Results Reviewed Results Reviewed: Laboratory Tests 10/20/24 11:36 WBC 5.1 RBC 3.96 L Hgb 12.2 Hct 36.9 L Plt Count 241 ESR 16 Sodium 141 Potassium 4.3 Chloride 108 Carbon Dioxide 26 BUN 20 H Creatinine 0.79 AST 33 H ALT 28 Alkaline Phosphatase 63 C-Reactive Protein < 0.10 Infectious lab 12/10/23 10/20/24 08:50 11:36 Hepatitis A IgM Ab Nonreactive Hep Bs Antigen Negative Hep Bs Antibody NONREACTIVE Hep B Core Total Ab Nonreactive Hepatitis C Ab (EIA) Nonreactive TB Test (T-Spot) Com Negative Pending XR Right Knee 02/2024 FINDINGS: Limited evaluation as above. There are marginal osteophytes with nonuniform joint space narrowing and patellofemoral compartment indicative of mild to moderate osteoarthritis unchanged. No effusion. No additional abnormalities. No marginal erosions IMPRESSION: Mild to moderate osteoarthritis of the right patellofemoral joint Assessment & Plan Assessment & Plan (1) Osteoarthritis of right knee: Code(s): M17.11 - Unilateral primary osteoarthritis, right knee Category: Medical Qualifiers: Osteoarthritis type: primary Qualified Code(s): M17.11 - Unilateral primary osteoarthritis, right knee Plan: #Right Knee OA Patient is a 59 year old female with RA and polyarticular OA here today for her 3rd Euflexxa injection Previously tried steroid injections but these have lost efficacy Plan - Completed Euflexxa series - Keep regular follow up Plan I spent 15 minutes reviewing the record and labs, taking a history, examining the patient, discussing the treatment plan, ordering diagnostic work up and documenting in the medical record Orders: Orders AMB Joint Injection/Aspiration Today M17.11 - Unilateral primary osteoarthritis, right knee Coding Level of Care Code Est Pt Level 3 (55046) Diagnoses Primary osteoarthritis of right knee M17.11 Osteoarthritis type: primary CPT Codes Coding - Large joint: 41811 - Large joint ([id number])
[2025-01-14 07:37] VITALS: BP 132/80; PULSE 84; O2SAT 98; BMI 29.9
== END 2025-01-14 07:51 | disposition home or self-care (01) ==
LOC: HO.RHES 07:29
PROVIDERS: PCP Internal Medicine; Visit Provider Student in an Organized Health Care Education/Training Program
DX: M17.11 Unilateral primary osteoarthritis, right knee (principal)
CPT/HCPCS: 20610; 99213

== ENCOUNTER → 2025-01-14 07:28 | Outpatient (BNVA) | payer OTHER, SELFPAY | PROVIDERS: PCP Internal Medicine; Visit Provider Student in an Organized Health Care Education/Training Program | DX: M17.11 Unilateral primary osteoarthritis, right knee (principal) | CPT/HCPCS: 20610; J7323 ==

== ENCOUNTER 2025-03-03 08:33 | Outpatient (AMB) | payer OTHER, SELFPAY ==
[2025-03-03 08:34] VITALS: BP 130/78; PULSE 89; TEMP 36.7; O2SAT 98; BMI 28.5
--- NOTE | 2025-03-03 08:34 | MHC.OFFWIV ---
Intake Vital Signs 03/03/25 08:34 Height 5 ft 1 in Weight 151 lb BMI 28.5 BP 130/78 Blood Pressure Location Lt brachial Position Sitting Pulse 89 Pulse Source Pulse Oximeter Temp 98.0 F Temp Source Oral Pulse Oximetry (%) 98 Intake Visit Reasons: ep pain in lower back Patient Tobacco Use Status: Never used Tobacco Allergies No Known Allergies Allergy (Verified 03/03/25 08:34) Do you need a note to return to daycare/school/sports/work: No HPI HPI Comments History of Present Illness Details History - The patient is a 59-year-old female presenting with low back pain. - She has pain across her low back on both sides with no known injury. - The pain began on Friday and has progressively worsened, especially when sitting or bending over. - The patient denies any history of back issues, arthritis, or recent heavy lifting. - No associated symptoms such as chest pain, shortness of breath, urinary symptoms, or numbness were reported. - The patient experiences increased discomfort when sitting and requires assistance with certain movements due to pain. - Stress is suspected to contribute to muscle tension, exacerbating the pain. - She denies saddle anesthesia, incontinence of urine or stool, numbness, tingling, - She has taken motrin for her pain with minimal relief. - She wants a note for work. Physical Exam General: cooperative, healthy appearing and comfortable, patient oriented x3 Head: Normal to inspection, normocephalic/atraumatic Effort & Inspection: Normal respiratory effort and able to speak in complete sentences. Cardiac: RRR, no M/R/G noted. Normal S1 and S2. Respiratory: Clear to auscultation bilaterally. No w/r/r noted. Back/spine: No CVA tenderness bilaterally. Cervical, thoracic and lumbar spine normal to inspection. Cervical ROM normal, no midline spinous tenderness noted. Thoracic ROM normal, lumbar ROM normal. No midline vertebral spinous tenderness noted. No step offs noted. No TTP of the thoracic muscles. TTP of the lumbar paraspinous or paravertebral muscles. No SI joint tenderness noted. DTR are 2+ on the lower extremities noted. Ambulates with a steady gait. Extremities: Straight leg raise test negative on right; Straight leg raise test negative on left; motor strength normal 5/5 bilaterally. Neuro: Sensation intact. Patient was informed and verbally consented to the use of an ambient scribe for clinic note documentation during this visit. [facility] Medical History Vitamin D deficiency Class 1 obesity with body mass index (BMI) of 34.0 to 34.9 in adult GERD (gastroesophageal reflux disease) Mixed hyperlipidemia Hypercholesterolemia Peptic ulcer disease Surgical History History of gastric surgery History of tubal ligation Family History Mother Diabetes HTN (hypertension) CVD (cardiovascular disease) Father High cholesterol Stroke Social History Household Members: Spouse Housing: House Alcohol intake: never Patient Tobacco Use Status: Never used Tobacco e-Cigarette/Vaping Use: Never Used Second Hand Smoke Exposure: No service: No Current occupational status: employed Current occupational exposures/hazards: No Cognitive needs: No Hearing needs: No Vision needs: Yes Female Reproductive History Menstrual Age of Menarche: 9 Review of Systems Const All systems reviewed & are unremarkable except as noted in HPI and below Physical Exam Vital Signs: Last Vital Signs Temp 98.0 F 03/03/25 08:34 Pulse 89 03/03/25 08:34 BP 130/78 03/03/25 08:34 Pulse Ox 98 03/03/25 08:34 BMI result Body Mass Index 28.5 Results AMB Urinalysis, Automated UA Leukoctes 0 Emanuel/uL Last Edit by Yony Vega CMA on 03/03/25 09:34 UA Nitrite Negative Last Edit by Yony Vega CMA on 03/03/25 09:34 UA Urobilinogen 0.2 mg/dL Last Edit by Yony Vega CMA on 03/03/25 09:34 UA Protein 15 mg/dL Last Edit by Yony Vega CMA on 03/03/25 09:34 UA pH 6.0 Last Edit by Yony Vega CMA on 03/03/25 09:34 UA Blood 0 Christopher/uL Last Edit by Yony Vega CMA on 03/03/25 09:34 UA Specific [place] 1.030 Last Edit by Yony Vega CMA on 03/03/25 09:34 UA Ketone Negative Last Edit by Yony Vega CMA on 03/03/25 09:34 UA Bilirubin 1 mg/dL Last Edit by Yony Vega CMA on 03/03/25 09:34 UA Glucose 0 mg/dL Last Edit by Yony Vega CMA on 03/03/25 09:34 Assessment & Plan Assessment & Plan (1) Back pain: Code(s): M54.9 - Dorsalgia, unspecified Qualifiers: Back pain location: low back pain Chronicity: acute Back pain laterality: bilateral Sciatica presence: without sciatica Qualified Code(s): M54.50 - Low back pain, unspecified Plan Most likely strain vs arthritis vs UTI UA +pro, 1+carolina Plan - rest and heat to the back - no heavy lifting and activities as tolerated - Prescribed a muscle relaxer and naproxen to manage low back pain. - Recommended contacting the primary care physician for potential physical therapy if pain persists. - Suggested an x-ray if there is no improvement with medication. - Advised taking time off work to rest and allow medications to take effect. Orders: Orders AMB Urinalysis Automated Today Z13.9 - Encounter for screening, unspecified Medications: New cyclobenzaprine 5 mg PO Q8H PRN 20 tabs 0RF Muscle Spasm naproxen 500 mg PO Q12H PRN 20 tabs 0RF pain 7 days Coding Level of Care Code Est Pt Level 4 (11082) Diagnoses Acute bilateral low back pain without sciatica M54.50 Back pain location: low back pain Chronicity: acute Back pain laterality: bilateral Sciatica presence: without sciatica
== END 2025-03-03 09:41 | disposition home or self-care (01) ==
PROVIDERS: PCP Internal Medicine; Visit Provider Physician Assistant Medical
DX: M54.50 Low back pain, unspecified (principal); Z13.9 Encounter for screening, unspecified

== ENCOUNTER → 2025-03-03 08:33 | Outpatient (BNVA) | payer OTHER, SELFPAY | PROVIDERS: PCP Internal Medicine; Visit Provider Physician Assistant Medical | DX: M54.50 Low back pain, unspecified (principal) | CPT/HCPCS: 81003 ==

== ENCOUNTER 2025-03-14 09:18 | Outpatient (REF) | payer OTHER, SELFPAY ==
[2025-03-14 11:38] LABS: Alanine Aminotransferase 20 U/L (0-31); Albumin Level 4.6 g/dL (3.5-5.0); Alkaline Phosphatase 54 U/L (39-117); Anion Gap 13 (12-20); Aspartate Amino Transferase 26 U/L (5-31); Blood Urea Nitrogen 17 mg/dL (9-16); Calcium 9.2 mg/dL (8.4-10.2); Carbon Dioxide 26 mmol/L (22-29); Chloride 107 mmol/L (96-108); Cholesterol 313 mg/dL (<200); Estimated Glomerular Filt Rate > 60; HDL Cholesterol 92 mg/dL (>40); Potassium 4.1 mmol/L (3.3-5.1); Sodium 142 mmol/L (135-145); Total Protein 7.3 g/dL (6.5-8.0); Triglycerides 126 mg/dL (<150)
== END 2025-03-14 09:19 | disposition home or self-care (01) ==
LOC: HO.LAB 09:18
PROVIDERS: PCP Internal Medicine; Visit Provider Internal Medicine
DX: E78.5 Hyperlipidemia, unspecified (principal); E78.00 Pure hypercholesterolemia, unspecified; E55.9 Vitamin D deficiency, unspecified
CPT/HCPCS: 36415; 80053; 80061; 82306

== ENCOUNTER 2025-03-15 07:31 | Outpatient (AMB) | payer OTHER, SELFPAY ==
[2025-03-15 07:35] VITALS: BP 130/86; PULSE 84; TEMP 36.2; O2SAT 98; BMI 28.8
--- NOTE | 2025-03-15 07:35 | A.OFFPC_ITS ---
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 Accompanied by: Self / Same As Patient Allergies No Known Allergies Allergy (Verified 03/15/25 07:43) Medication List - Last Reconciled 03/15/25 by Myrtle Graff MD ibuprofen 600 mg PO Q8H PRN 90 days omeprazole 20 mg PO DAILY 90 days Rinvoq ER (upadacitinib) 15 mg PO DAILY NS Tobacco use date assessed: 03/15/25 Dental Screening Dental Screen Date: 03/15/25 Did you have a dental visit in the last 12 months?: Yes Did you have a dental problem in the last 6 months where you did not have access to dental care?: No Was dental information given to patient?: Patient has dentist HPI HPI Comments History of Present Illness Details The patient is a 59-year-old female presenting for an annual physical examination and management of chronic conditions. The patient has a history of rheumatoid arthritis, managed by Dr. Fazal Corley, and is currently on Rinvoq. for treatment. She has hypercholesterolemia, with cholesterol levels recorded at 296 mg/dL in September, now increased to 313 mg/dL, and an LDL of 196 mg/dL. Dietary modifications, including daily oatmeal consumption, have been advised to manage cholesterol levels. The patient also has a vitamin D deficiency, with supplementation recommended. Family history includes maternal at 67 from myocardial infarction and a paternal history of cerebrovascular accident. The patient denies smoking and alcohol consumption. Surgical history includes gastric sleeve surgery in 2015 and tubal ligation. [facility] Medical History Vitamin D deficiency Class 1 obesity with body mass index (BMI) of 34.0 to 34.9 in adult GERD (gastroesophageal reflux disease) Mixed hyperlipidemia Hypercholesterolemia Peptic ulcer disease Surgical History History of gastric surgery History of tubal ligation Family History Mother Diabetes HTN (hypertension) CVD (cardiovascular disease) Father High cholesterol Stroke Social History Household Members: Spouse Housing: House Alcohol intake: never Patient Tobacco Use Status: Never used Tobacco e-Cigarette/Vaping Use: Never Used Second Hand Smoke Exposure: No service: No Current occupational status: employed Current occupational exposures/hazards: No Cognitive needs: No Hearing needs: No Vision needs: Yes Female Reproductive History Menstrual Age of Menarche: 9 Questionnaire PHQ-9 Over the last 2 weeks, how often have you been bothered by any of the following problems? 1. Little interest or pleasure in doing things: not at all 2. Feeling down, depressed, or hopeless: not at all 3. Trouble falling or staying asleep, or sleeping too much: not at all 4. Feeling tired or having little energy: not at all 5. Poor appetite or overeating: several days 6. Feeling bad about yourself - or that you are a failure or have let yourself or your family down: not at all 7. Trouble concentrating on things, such as reading the newspaper or watching television: not at all 8. Moving or speaking so slowly that other people could have noticed. Or the opposite - being so fidgety or restless that you have been moving around a lot more than usual: not at all 9. Thoughts that you would be better off or of hurting yourself in some way: not at all Total score: 1 Depression Screening Interpretation: Negative Depression Screening Done: Yes 09017 - PHQ-9 Billing: Yes Source: Developed by Drs. Diego hSea, Celeste Avendano, You Austin and colleagues, with an educational hilda from [employer]. Thrive Questionnaire Date Thrive assessed: 03/15/25 I am a: Patient What is your living situation today?: I have a steady place to live Within the past 12 months, did the food you bought not last and you didn't have the money to get more?: Never true Within the past 12 months, did you worry whether your food would run out before you got money to buy more?: Never true Do you have trouble paying for medicines?: No Do you have trouble getting transportation to medical appointments?: No Do you have trouble paying your heating and electricity bill?: No Do you have trouble taking care of your child, family member or friend?: No Do you have trouble with day-to-day activities such as bathing, preparing meals, shopping, managing finances, etc.?: No Are you currently unemployed and looking for a job?: No Are you interested in more education?: No Please select the resources that you would like help with: None Currently or been in a relationship where the following occur: No concerns reported THRIVE Score: 0 AUDIT C Alcohol Use Questionnaire (AUDIT-C) 1. How often do you have a drink containing alcohol?: Never 3. How often do you have six or more drinks on one occasion?: Never Total Score: 0 Score Reviewed/Action Taken: No ARJUN-7 AMB Questionnaire ARJUN-7 Date ARJUN - 7 assessed: 03/15/25 Feeling nervous, anxious, or on edge: 0 = Not at all Not being able to stop or control worryin = Not at all Worrying too much about different things: 0 = Not at all Trouble relaxin = Not at all Being so restless that it is hard to sit still: 0 = Not at all Becoming easily annoyed or irritable: 1 = Several days Feeling afraid as if something awful might happen: 0 = Not at all Total ARJUN-7 score (0-4 normal; 5-9 mild; 10-14 moderate; 15-21 severe): 1 Source: Developed by Drs. Diego Shea, Celeste Avendano, You Austin and colleagues, with an educational hilda from [employer]. ARJUN-7 Assessment Billing ARJUN-7 Assessment Tool: ARJUN-7 Assessment 29328 Review of Systems Const All systems reviewed & are unremarkable except as noted in HPI and below Card Denies chest pain at rest, Denies chest pain with activity, Denies edema, Denies irregular heart rhythm, Denies claudication, Denies dyspnea, Denies dyspnea on exertion, Denies orthopnea, Denies paroxysmal nocturnal dyspnea and Denies slow heart rate Resp Denies cough, Denies dyspnea and Denies dyspnea on exertion GI Denies abdominal pain, Denies change in bowel habits, Denies excessive flatus, Denies nausea and Denies vomiting Denies urinary incontinence, Denies urinary hesitancy and Denies urinary urgency Musc Denies atrophy, Denies deformity and Denies limited range of motion Skin/Breast Denies bleeding lesions, Denies changing lesions and Denies rash Physical exam (Primary Care) Vital Signs: Last Vital Signs Temp 97.1 F 03/15/25 07:35 Pulse 84 03/15/25 07:35 BP 130/86 03/15/25 07:35 Pulse Ox 98 03/15/25 07:35 Oxygen Delivery Method Room Air 03/15/25 07:35 BMI result Body Mass Index 28.8 Tobacco/Smoking Status: Tobacco use Status Tobacco use date assessed 03/15/25 03/15/25 07:38 Patient Tobacco Use Status Never used Tobacco 03/15/25 07:38 e-Cigarette/Vaping Use Never Used 03/15/25 07:38 PHQ-9: PHQ-9 Score PHQ-9: Total score 1 03/15/25 07:46 Depression Screening Interpretation: Negative Thrive Assessment: Date of Thrive Assessment Date Thrive assessed 03/15/25 03/15/25 07:38 Currently or been in a relationship where the following occur: No concerns reported [facility] Head: Yes normal to inspection, Yes normocephalic and Yes atraumatic Ears: external ears normal Eyes General: appearance normal, both eyes and all related structures Eyelids: Yes eyelids normal Conjunctivae: conjunctivae normal Neck Neck: Yes normal visual inspection and Yes supple Resp Effort & Inspection: normal respiratory effort Auscultation: clear to auscultation bilaterally Cardio Jugular venous distension: no JVD Rate: regular rate Rhythm: regular rhythm Heart sounds: S1 normal heart sound present and S2 normal heart sound present GI Inspection: Yes normal to inspection Palpation (GI): Soft to palpation and nontender Auscultation: normal bowel sounds Skin General skin exam: no rashes or lesions noted Neuro General: no focal motor deficits Extrem General: Yes full ROM Psych Appearance: grossly normal Office Procedures Flu Questionnaire Does the patient have a severe egg allergy?: No Does the patient have severe life threatening allergies?: No Does the patient have a fever or illness today?: No Has the patient ever had Guillain-[place] Syndrome?: No Has the patient ever had any past reaction to a flu shot?: No Immunizations Fluarix [id number] (PF) 45 mcg (15 mcg x 3)/0.5 mL IM syringe Performing Provider: Myrtle Graff MD [facility] Administered by: Dianna Gill CMA on 03/15/25 08:09 Dose Route Admin Location Dispensed Lot Number Expiration Date [employer] Tax[employer] 0.5 mL IM Left Deltoid 0.5 mL [id number] 11/22/25 [id number] [employer] VIS Given Date VIS Provided VIS Publication Date 03/15/25 Single Vaccine 24 Eligibility Eligibility Date Funding Source Not [facility] Eligible 03/15/25 Private Coding Level of Care Code Est Pt Prev Care 40-64y(48433) Diagnoses Physical exam Z00.00 Seropositive rheumatoid arthritis M05.9 Additional Codes ARJUN-7 Assessment Billing - ARJUN-7 Assessment Tool: ARJUN-7 Assessment 04097 ([id number]) PHQ-9 - 47869 - PHQ-9 Billing: Yes ([id number]) Time Spent (min) 30 Assessment & Plan Assessment & Plan (1) Physical exam: Code(s): Z00.00 - Encounter for general adult medical examination without abnormal findings Category: Medical (2) Seropositive rheumatoid arthritis: Comment: Humira: May 2020- August 2020- continued pain Methotrexate: January 2018-May 2020-GI upset Rinvoq- August 2020- present Code(s): M05.9 - Rheumatoid arthritis with rheumatoid factor, unspecified Category: Medical Plan Plan 1. Encounter for general adult medical examination without abnormal findings Z00.00 A stool test for colon cancer screening is recommended as part of preventative care. The patient received an influenza vaccination during this visit. Mammogram ordered. 2. Rheumatoid arthritis, unspecified M06.9 HCC 40 The patient is under the care of Dr. Fazal Corley for rheumatoid arthritis and is currently taking Rinvoq. Orders: Orders Vitamin D 25-OH Total 6 Months E55.9 - Vitamin D deficiency, unspecified Influenza [id number] Immunization Today Z23 - Encounter for immunization Lipid Panel 6 Months E78.5 - Hyperlipidemia, unspecified Comprehensive [place]. Panel Fast 6 Months Z00.00 - Encounter for general adult medical examination without abnormal findings MM tomosynthesis screening BI Today Z12.31 - Encounter for screening mammogram for malignant neoplasm of breast Referrals Cologuard Test Z12.11 - Encounter for screening for malignant neoplasm of colon, Z12.12 - Encounter for screening for malignant neoplasm of rectum Medications: New cholecalciferol (vitamin D3) 50 mcg PO DAILY 90 caps 3RF 90 days
== END 2025-03-15 08:07 | disposition home or self-care (01) ==
LOC: HO.HMCH 07:32
PROVIDERS: PCP Internal Medicine; Visit Provider Internal Medicine
DX: Z00.00 Encounter for general adult medical examination without abnormal findings (principal); M05.9 Rheumatoid arthritis with rheumatoid factor, unspecified; Z23 Encounter for immunization

== ENCOUNTER → 2025-03-15 07:31 | Outpatient (BNVA) | payer OTHER, SELFPAY | PROVIDERS: PCP Internal Medicine; Visit Provider Internal Medicine | DX: Z00.00 Encounter for general adult medical examination without abnormal findings (principal); M05.9 Rheumatoid arthritis with rheumatoid factor, unspecified; E78.00 Pure hypercholesterolemia, unspecified; E55.9 Vitamin D deficiency, unspecified; Z23 Encounter for immunization | CPT/HCPCS: 90471; 90656; 96127 ==

== ENCOUNTER 2025-05-03 09:08 | Outpatient (REF) | payer OTHER, SELFPAY ==
[2025-05-03 09:19] LABS: MANUAL DIFF FLAG NO
[2025-05-03 09:50] LABS: Hematocrit 34.8 % (37.0-47.0); Hemoglobin 11.4 g/dl (12.0-16.0); Imm Gran Abs Auto 0.01 X10*3/uL (0.00-0.03); Imm Gran Pct Auto 0.2 % (0.0-0.4); Lymphocytes Absolute Auto 1.3 X10*3/uL (1.2-4.9); Mean Corpuscular HGB Conc 32.8 g/dl (31.0-35.0); Mean Corpuscular Hemoglobin 31.1 pg (27.0-33.0); Mean Corpuscular Volume 94.8 fL (80.0-98.0); NRBC Abs Auto 0.000 X10*3/uL (0.0-0.012); NRBC Pct Auto 0.0 /100WBC (0.0-0.2); Platelet Count 209 X10*3/uL (160-400); Red Blood Count 3.67 X10*6/uL (4.20-5.50); White Blood Count 4.4 X10*3/uL (4.8-10.8)
[2025-05-03 10:27] LABS: Alanine Aminotransferase 22 U/L (0-31); Albumin Level 4.5 g/dL (3.5-5.0); Alkaline Phosphatase 49 U/L (39-117); Anion Gap 11 (12-20); Aspartate Amino Transferase 29 U/L (5-31); Blood Urea Nitrogen 15 mg/dL (9-16); Calcium 9.1 mg/dL (8.4-10.2); Carbon Dioxide 27 mmol/L (22-29); Chloride 110 mmol/L (96-108); Estimated Glomerular Filt Rate > 60; Potassium 3.9 mmol/L (3.3-5.1); Sodium 144 mmol/L (135-145); Total Protein 7.1 g/dL (6.5-8.0)
[2025-05-03 10:31] LABS: Erythrocyte Sedimentation Rate 17 MM/HR (0-20)
== END 2025-05-03 09:09 | disposition home or self-care (01) ==
LOC: HO.LAB 09:08
PROVIDERS: PCP Internal Medicine; Visit Provider Student in an Organized Health Care Education/Training Program
DX: M05.9 Rheumatoid arthritis with rheumatoid factor, unspecified (principal)
CPT/HCPCS: 36415; 80053; 85025; 85652; 86140

== ENCOUNTER 2025-05-05 07:41 | Outpatient (AMB) | payer OTHER, SELFPAY ==
--- NOTE | 2025-05-05 07:53 | A.OFFVIS_ITS ---
Vital Signs 05/05/25 07:57 Height 5 ft 1 in Weight 145 lb 11.609 oz BMI 27.5 BP 124/82 Blood Pressure Location Lt brachial Position Sitting Pulse 77 Pulse Source Pulse Oximeter Pulse Oximetry (%) 97 Oxygen Delivery Method Room Air Intake Visit Reasons: RA Intake Note: Patient presents today for RA follow up and test results. 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 - She experiences occasional morning stiffness, but it is not long-lasting. - For osteoarthritis, she completed a third dose of Euflexxa injections in her right knee in December, which she feels has helped. - She reports only a little pain with extensive walking, which is an improvement from her previous state. - A recent blood work review showed that her vitamin D level is very low, and she has been started on a supplement by her primary doctor. Rheumatologic History: Seropositive rheumatoid arthritis Humira: May 2020- August 2020- continued pain Methotrexate: January 2018-May 2020-GI upset Rinvoq- August 2020- present Current Rheumatology Medication(s): Rinvoq 15mg daily [facility] Medical History Vitamin D deficiency Class 1 obesity with body mass index (BMI) of 34.0 to 34.9 in adult GERD (gastroesophageal reflux disease) Mixed hyperlipidemia Hypercholesterolemia Peptic ulcer disease Surgical History History of gastric surgery History of tubal ligation Family History Mother Diabetes HTN (hypertension) CVD (cardiovascular disease) Father High cholesterol Stroke Social History Household Members: Spouse Housing: House Alcohol intake: never Patient Tobacco Use Status: Never used Tobacco e-Cigarette/Vaping Use: Never Used Second Hand Smoke Exposure: No service: No Current occupational status: employed Current occupational exposures/hazards: No Cognitive needs: No Hearing needs: No Vision needs: Yes Female Reproductive History Menstrual Age of Menarche: 9 Review of Systems Narrative Review of Systems - Musculoskeletal: Reports mild pain in the right knee only with extensive walking. - Reports occasional, brief morning stiffness. - Constitutional: Reports feeling better. - Denies any new issues. All other systems reviewed and are unremarkable except noted above Physical Exam Exam Exam: Vital signs reviewed Physical Examination CONSTITUITIONAL Patient alert and cooperative. Well appearing and in no apparent painful distress MSK Hands * Right Hand: Able to make a fist. No swelling or tenderness to palpation of the MCPs, PIPs or DIPs. * Left Hand: Able to make a fist. No swelling or tenderness to palpation of the MCPs, PIPs or DIPs. * Herbedens nodes noted bilaterally Wrists * Right Wrist: Full ROM to flexion and extension. No swelling or TTP * Left Wrist: Full ROM to flexion and extension. No swelling or TTP Elbows * Right Elbow: Full ROM. No swelling or TTP. No TTP of the medial epicondyle. No TTP of the lateral epicondyle * Left Elbow: Full ROM. No swelling or TTP. No TTP of the medial epicondyle. No TTP of the lateral epicondyle Shoulders * Right shoulder: Full ROM. No swelling noted. No TTP of the AC joint. No TTP of the subacromial bursa. No TTP of the posterior shoulder * Left shoulder: Full ROM. No swelling noted. No TTP of the AC joint. No TTP of the subacromial bursa. No TTP of the posterior shoulder Knees * Right knee: Full ROM. No swelling noted. No TTP of the knee joint line. No TTP of pes anserine bursa * Left knee: Full ROM. No swelling noted. No TTP of the knee joint line. No TTP of pes anserine bursa. * Crepitations felt bilaterally Ankles * Right ankle: Good ankle dorsiflexion and plantar flexion. No swelling. No TTP of the ankle joint * Left ankle: Good ankle dorsiflexion and plantar flexion. No swelling. No TTP of the ankle joint Feet * Right foot: Negative squeeze test * Left foot: Negative squeeze test Tender points? * No tenderness to palpation of the bilateral trapezius, supraspinatus, anterior costochondral junctions, bilateral suboccipital muscle insertions SKIN No rashes Vital Signs: Last Vital Signs Pulse 77 05/05/25 07:57 BP 124/82 05/05/25 07:57 Pulse Ox 97 05/05/25 07:57 Oxygen Delivery Method Room Air 05/05/25 07:57 BMI result Body Mass Index 27.5 Results Reviewed Results Reviewed: Laboratory Tests 03/14/25 05/03/25 09:24 09:17 WBC 4.4 L RBC 3.67 L Hgb 11.4 L Hct 34.8 L Plt Count 209 ESR 17 Sodium 144 Potassium 3.9 Chloride 110 H Carbon Dioxide 27 BUN 15 Creatinine 0.72 AST 29 ALT 22 C-Reactive Protein < 0.10 25-OH Vitamin D Total 17.5 L Laboratory Tests 10/20/24 11:36 Hepatitis A IgM Ab Nonreactive Hep Bs Antigen Negative Hep Bs Antibody NONREACTIVE Hep B Core Total Ab Nonreactive Hepatitis C Ab (EIA) Nonreactive TB Test (T-Spot) Com Negative Assessment & Plan Assessment & Plan (1) Seropositive rheumatoid arthritis: Comment: Humira: May 2020- August 2020- continued pain Methotrexate: January 2018-May 2020-GI upset Rinvoq- August 2020- present Code(s): M05.9 - Rheumatoid arthritis with rheumatoid factor, unspecified Category: Medical Plan: #Seropositive RA Patient is a 59-year-old female with seropositive rheumatoid arthritis here today for follow up. Currently in remission on Rinvoq monotherapy Plan - Rinvoq 15mg daily - RTC 6 months - Labs before visit: CBC, CMP, ESR, CRP, Hepatitis panel and T spot (2) Polyarticular osteoarthritis: Code(s): M15.9 - Polyosteoarthritis, unspecified Plan: #Polyarticular OA Patient with polyarticular OA. Right now her main complaint is right knee pain. Completed Euflexxa series and is doing better Recommended her to do a self-assessment in June and if needed she can return for a repeat of the series (3) Long-term current use of Janus kinase inhibitor: Code(s): Z79.622 - jail (current) use of Janus kinase inhibitor Plan: #Long-term Use of RUFUS inhibitor : Rinvoq Discussed with patient the benefits and risks of RUFUS inhibitors for the management of the rheumatic condition Benefits include reduce pain, maintenance of remission and reduction of flares Risks include thromboembolic events, skin cancer and nonmelanoma skin cancers, other forms of cancer, cardiovascular alcohol and mortality Advise patient that they are to hold the medication and for up to 1 week after a febrile illness or an open skin wound Plan I spent 30 minutes reviewing the record and labs, taking a history, examining the patient, discussing the treatment plan, ordering diagnostic work up and documenting in the medical record Coding Level of Care Code Est Pt Level 4 (06852) Add On Problem Visit Only Diagnoses Seropositive rheumatoid arthritis M05.9 Polyarticular osteoarthritis M15.9 Long-term current use of Janus kinase inhibitor Z79.622
[2025-05-05 07:57] VITALS: BP 124/82; PULSE 77; O2SAT 97; BMI 27.5
== END 2025-05-05 08:13 | disposition home or self-care (01) ==
LOC: HO.RHES 07:42
PROVIDERS: PCP Internal Medicine; Visit Provider Student in an Organized Health Care Education/Training Program
DX: M05.9 Rheumatoid arthritis with rheumatoid factor, unspecified (principal); M15.9 Polyosteoarthritis, unspecified; Z79.622 Long term (current) use of Janus kinase inhibitor
CPT/HCPCS: 99214; G2211